=== PATIENT | male | born 1935 | race Caucasian/White ===

== ENCOUNTER → 2017-01-06 | Outpatient (CLI) | payer MEDICARE, BC, OTHER ==
[~2017-01-06] MED LIST: ADVI200T PO; ASPI1TAB PO; E-Z PAQUE 60% w/v SUSP 355ML BOTTLE As Ordered ONE; E-Z-GAS II EFFERVESCENT PACKET (SODIUM BICARB./CITRIC ACID/SIMETHICONE) As Ordered ONE; E-Z-HD 98% w/w 340GM SUSP BTL As Ordered ONE; GLUC15002 PO; MECL-68 PO; META0.52 PO; METO5TAB2 PO; MULTCAP PO; OMEP10CA45 PO; TYLE325T5 PO; VIAG100T PO; ZANT1TAB PO
--- NOTE | 2017-01-06 15:43 | REP ---
ESOPHAGRAM: The procedure was performed under the direct supervision of Dr. Park. The images were reviewed with Dr. Park. 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 There is no change compared to a previous chest x-ray performed on 01/20/2016 other than the right rib fracture is now a healed rib fracture. Liquid barium was administered in the erect position. The oral and pharyngeal stages of deglutition were initially unremarkable, however, subsequently the patient did aspirate without cough response. There are degenerative changes of the cervical spine. 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 There is no evidence of esophagitis. There is a hiatal hernia present. Gastroesophageal reflux is not demonstrated on this examination. IMPRESSION: 1. There is aspiration without cough response. 2. 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 3. There is a hiatal hernia present. 1 minute and 14 seconds of fluoroscopy time was utilized for this procedure. Reviewed by KEVIN Mcpherson 01/06/2017 04:10 PEdited and Signed by Luke Park MD 01/06/2017 05:02 P
== END ==
LOC: M RAD 08:21
PROVIDERS: ATTEND Surgery
DX: R13.10 Dysphagia, unspecified (principal)

== ENCOUNTER 2017-10-18 15:29 | Inpatient (IN) | payer MEDICARE, BC, OTHER ==
[~2017-10-18] VITALS: Ht 170.2 cm; Wt 63.2 kg
[~2017-10-18 15:29] MED LIST changes: -E-Z PAQUE 60% w/v SUSP 355ML BOTTLE As Ordered ONE; -E-Z-GAS II EFFERVESCENT PACKET (SODIUM BICARB./CITRIC ACID/SIMETHICONE) As Ordered ONE; -E-Z-HD 98% w/w 340GM SUSP BTL As Ordered ONE
[2017-10-18] MEDS ORDERED: DULO1CAP2 PO (16:02)
[2017-10-18] MEDS ORDERED: STOO1CAP9 PO (16:02)
[2017-10-18] MEDS ORDERED: LINZ145C PO (16:02)
[2017-10-18] MEDS ORDERED: LOPE2CAP PO (16:02)
[2017-10-18] MEDS ORDERED: ONDANSETRON 4MG/2ML VIAL (J2405) IV ONE (16:45)
--- NOTE | 2017-10-18 16:45 | REP ---
CT of the brain without IV contrast: Comparison is 06/02/2014. There is no epidural or subdural hematoma. There is no other hemorrhage. There is no edema, mass effect or midline shift. The cortical stripe is unremarkable. The ventricles and sulci are dilated as previously compatible with diffuse volume loss. The visualized paranasal sinuses and mastoid air cells are clear. Impression: Diffuse volume loss, unchanged from the prior study. No subdural hematoma or other intracranial hemorrhage. No change from the prior study. The patient's head is tilted in the scanning gantry. Signed by Josué Arambula MD 10/18/2017 04:37 P
--- NOTE | 2017-10-18 16:46 | REP ---
Cervical spine l CT: There are no comparisons. Axial images are acquired helical scanning and a reformatted sagittal coronal projections. There are no comparisons. The skull base, C1-C2 are unremarkable except for osteoarthritis. There is diffuse demineralization. Vertebral body heights are normal. No compression deformities. The facets are normally aligned. There is osteoarthritis throughout the facets. There is degenerative disc disease at C 04/, 03/12 and 04/13. There is grade [address] for vertebral body on C5. This is likely degenerative or from ligamentous laxity. The prevertebral soft tissues are normal. There are no posterior element fractures. Impression: There is no fracture. There is grade 1 anterolisthesis of C4 on C5, likely degenerative secondary ligamentous laxity. However, if there is clinical point tenderness at this level. CT might be considered to evaluate for ligamentous injury. There is osteoarthritis in the posterior facets throughout the cervical spine Signed by Josué Arambula MD 10/18/2017 04:37 P
[2017-10-18] MEDS ORDERED: TETANUS/DIPHTHERIA TOX ADSORB ADULT 0.5ML SYR/VIAL (90714) IM ONE (17:00)
--- NOTE | 2017-10-18 17:03 | REP ---
AP pelvis and right hip: AP pelvis single view: There is a demineralization. There is no pelvic fracture. Surgical fusion of the lumbar spine at L4-5. There are bilateral laminectomies at L4-5. Right hip two views: On the lateral view I suspect there is a nondisplaced fracture of the femoral neck. This is not visible on the AP view of the hip or AP view of the pelvis. CT might be considered for confirmation. Signed by Josué Arambula MD 10/18/2017 04:54 P
[2017-10-18] MEDS: MORPHINE 2 MG/ML 1ML SYRINGE IV PRN ×3 (17:07→22:58)
[2017-10-18 17:10] LABS: BASO # 0.1 10^3/uL (0.0-0.2); BASO % 0.4 % (0.0-1.0); EOS # 0.3 10^3/uL (0.0-0.50); EOS % 2.4 % (0.0-3.0); IMMATURE GRANULOCYTE % 0.7 % (0-0); LYMPH # 1.8 10^3/uL (1.5-4.5); LYMPH % 15.9 % (24.0-44.0); MEAN CORPUSCULAR HEMOGLOBIN 33.6 pg (27.0-33.0); MEAN CORPUSCULAR HGB CONC 33.3 g/dl (32.0-36.5); MEAN CORPUSCULAR VOLUME 100.8 fl (80.0-96.0); MONO # 0.9 10^3/uL (0.0-0.8); MONO % 7.5 % (0.0-5.0); NEUTROPHILS # 8.3 10^3/uL (1.8-7.7); NEUTROPHILS % 73.1 % (36.0-66.0); PLATELET COUNT, AUTOMATED 252 10^3/uL (150-450); RED CELL DISTRIBUTION WIDTH 13.6 % (11.5-14.5); WHITE BLOOD COUNT 11.4 10^3/uL (4.0-10.0)
[2017-10-18 17:20] LABS: INR 1.13
[2017-10-18 17:28] LABS: ANION GAP 8 MEQ/L (8-16); BLOOD UREA NITROGEN 27 MG/DL (7-18); CALCIUM LEVEL 8.3 MG/DL (8.8-10.2); CARBON DIOXIDE LEVEL 27 MEQ/L (21-32); CHLORIDE LEVEL 112 MEQ/L (98-107); CREATININE FOR GFR 0.97 MG/DL (0.70-1.30); GLOMERULAR FILTRATION RATE > 60.0 (>35); GLUCOSE, FASTING 92 MG/DL (83-110); SODIUM LEVEL 147 MEQ/L (136-145)
[2017-10-18] MEDS ORDERED: OMEP40CA2 PO (17:32)
--- NOTE | 2017-10-18 18:53 | REP ---
CT RIGHT HIP WITHOUT CONTRAST: 10/18/2017. Clinical history: Trauma, suspected femoral neck fracture on radiographs. Technique. Thin-section axial soft-tissue and bone window settings with coronal and sagittal bone window reconstructions. Findings: There is a subcapital fracture of the femoral neck at the femoral head junction with some mild apex anterior angulation of the fracture. No subluxation or dislocation of the femoral head from the acetabulum. There is some narrowing of the hip joint space and rim osteophyte and subchondral cystic change in the acetabular roof and anterior column of the acetabulum. Posterior column intact. I see no fracture of the acetabulum and no intertrochanteric fracture. The pubic rami, symphysis pubis and remainder the visualized iliac bone above the acetabulum unremarkable. That portion of the left side of the sacrum seen is unremarkable. Bladder partially filled. No inguinal hernia or adenopathy visible on this study. There is a joint effusion from the fracture. Impression: 1. Confirmation of the plain film finding of a right femoral neck fracture with some apex anterior angulation and slight impaction of the femoral neck fracture at the femoral head as a basicervical fracture. No other fractures. Some degenerative changes at the hip joint as described. Signed by Pepe Cornell MD 10/18/2017 08:06 P
[2017-10-18] MEDS ORDERED: ACETAMINOPHEN TAB 650MG DOSE (2X325MG) PO PRN (20:45)
[2017-10-18] MEDS ORDERED: OMEPRAZOLE 20 MG CAP PO SCH (21:00)
[2017-10-18] MEDS ORDERED: DULoxetine 30 MG CAP (CYMBALTA) PO SCH (21:00)
--- NOTE | 2017-10-18 21:02 | CR ---
DATE OF CONSULTATION: 10/18/2017 REASON FOR CONSULTATION: Right hip fracture. CONSULTING PHYSICIAN: Hospitalist service. CHIEF COMPLAINT: Right hip pain. HISTORY OF PRESENT ILLNESS: Danny Elena is an 82-year-old male home ambulator with a walker who sustained a mechanical fall from standing height today, resulting in immediate right hip pain and difficulty bearing weight in addition to a scalp laceration. The scalp laceration was washed and closed by the emergency room doctor. Patient had continued right hip pain, imaging showing femoral neck fracture. Orthopedics was consulted for management of this fracture. The patient denied any antecedent hip pain. He also denied any antecedent chest pain, calf pain, shortness of breath, dizziness, nausea, or headaches prior to his fall. He localized pain to the right hip. He does have baseline spinal stenosis with numbness in bilateral lower extremities, which has not changed from this fall. PAST MEDICAL HISTORY: Significant for: 1. Hypertension. 2. Gastroesophageal reflux disease (GERD). 3. Arrhythmia. MEDICATIONS: - Advil as needed - baby aspirin once daily - omeprazole 40 mg daily - ranitidine 150 mg twice a day - Cymbalta 30 mg once daily ALLERGIES: No known drug allergies. PAST SURGICAL HISTORY: 1. Appendectomy. 2. Pacemaker placement. 3. L4-5 posterior spinal fusion. FAMILY HISTORY: Noncontributory. SOCIAL HISTORY: Patient lives with his in [place]. He does not smoke or use illicit drugs. REVIEW OF SYSTEMS: A 14-point review of systems was reviewed and unremarkable. PHYSICAL EXAMINATION: VITAL SIGNS: Temperature 96.7, heart rate 90, blood pressure 140/81, respiratory rate 21, oxygen saturation 95% on room air. GENERAL: This is a well-nourished male who appears his stated age. No acute distress. HEENT: He had a 3 cm scalp laceration that was washed and closed with donato. CARDIOVASCULAR: He had 2+ dorsalis pedis (DP) and posterior tibialis (PT) pulse and brisk capillary refill at all digits of the right lower extremity. NEUROLOGIC: Patient had intact but diminished sensation globally about the right lower extremity. Motor function is grossly intact in the femoral, tibial, sural, saphenous, superficial peroneal, and deep peroneal nerve distributions. MUSCULOSKELETAL: Focus physical exam of the right hip demonstrates no open wounds or abrasions. There is no pain with logroll. He is maximally tender about the lateral posterior aspect of the right hip. There is no visible ecchymosis or soft tissue swelling. He has no tenderness about the knee or ankle. RADIOGRAPHS: Plain radiographs of the right hip demonstrate a minimally displaced femoral neck fracture. CT scan of the right hip demonstrates minimally displaced right femoral neck fracture. ASSESSMENT: This is an 82-year-old male home ambulator with a minimally displaced right femoral neck fracture. PLAN: I had a long discussion with the patient and family regarding risks, benefits, indications, and alternatives of operative versus nonoperative management. Given his ambulatory status and his overall level of function, I think the patient would suffice with percutaneous screw fixation despite the mild posterior displacement; however, hemiarthroplasty could also be considered in a case like this. I discussed with the patient's family and obtained informed consent for both percutaneous screw fixation and hemiarthroplasty. Patient was evaluated by the hospitalist service and needs to be evaluated to see if his current pacemaker needs to be interrogated prior to surgery. He will be posted for tomorrow pending clearance. Recommend nothing by mouth after midnight in anticipation of surgical fixation tomorrow. Patient and family expressed understanding and agreed to the plan. All questions were answered. BERNICE
[2017-10-18] MEDS: NORCO, ANEXSIA 5/325MG TABLET (HYDROcodone/ACETAMINOPHEN) PO PRN (21:15)
[2017-10-18] MEDS: FAMOTIDINE 20 MG TAB PO SCH (21:39)
[2017-10-18 23:00] VITALS: BP 169/95
[2017-10-18 23:32] VITALS: BP 148/76
[2017-10-18] MEDS ORDERED: MORPHINE 2 MG/ML 1ML SYRINGE IV ONE (23:45)
--- NOTE | 2017-10-19 00:51 | HPE ---
DATE OF ADMISSION: 10/18/2017 ATTENDING PHYSICIAN: Cheikh Landrum MD. CHIEF COMPLAINT: Fell and broke hip. HISTORY OF PRESENT ILLNESS: This is a pleasant 82-year-old male with a past medical history of status post lumbar disc surgery, hiatal hernia, history of complete heart block, currently with a dual-chamber pacemaker placed by Dr. Barnhart in 2014, who is presenting today after a mechanical fall this afternoon around 2 p.m. When ambulating from the living room to the bedroom, he stubbed his toe on the carpet, fell, hit his head on the doorjamb and hit his hip on the doorjamb on the way down Patient denies having a syncopal episode, felling dizzy or lightheaded prior to the fall. He denies any loss of conscious and remember all events till now. Patient states he usually uses a walker to ambulates since his back surgery. He denies having any hip pain prior to the fall and currently his pain in the emergency room (ER) is managed well with the morphine. Patient states that he did not take any medication after the fall at home. He had stayed grounded until emergency medical services (EMS) came and got him and has not ambulated at all. The fall was not witnessed but his was in the next room who heard the fall. States to normally walk around the house with his walker and some outside, but does not do any extraneous work. He has no other complaints at this visit at this time. PAST MEDICAL HISTORY: 1. Complete heart block history, currently on a dual-chamber pacemaker 2. Chronic back pain status post lumbar disc surgery. 3. Hiatal hernia. 4. Acid reflux. ALLERGIES: No known drug allergies. MEDICATIONS: - Advil 200 mg as needed 2-3 times in the morning - aspirin 81 mg daily at night - stool softener 250 mg twice a day - omeprazole 40 mg once a day - ranitidine 150 mg two times a day - Cymbalta 30 mg once a day at night - loperamide 2 mg capsule as needed for loose stools - Linzess one capsule as needed for loose stools PAST SURGICAL HISTORY: 1. Lumbar disc surgery. 2. Dual-chamber pacemaker in 2014. SOCIAL HISTORY: Previous smoker, quit 5 years ago with a history of one pack per day for 23 years. Currently a rare social drinker. Is , lives with his and dog at home. REVIEW OF SYSTEMS: CONSTITUTIONAL: Denies chills, fever, malaise, night sweats or weight loss. EYES: Denies any pain, vision changes. SKIN: Denies easy bruising or itchy lesions or rashes. PULMONARY: Denies shortness of breath, dyspnea or cough or pleuritic chest pain. CARDIOVASCULAR: Denies chest pain, palpitations, lower extremity edema, lightheadedness. GASTROINTESTINAL: Denies nausea, vomiting. Admits to abdominal discomfort due to history of constipation. Denies current diarrhea or hematochezia. HEMATOLOGICAL: Denies easy bruising or bleeding excessively, petechia or purpura. MUSCULOSKELETAL: Admits to back pain and hip pain and some muscle spasms in his lower extremities. Also admits to decreased sensation bilaterally chronically since back surgery. NEUROLOGICAL: Denies incoordination or confusion. PHYSICAL EXAMINATION: VITAL SIGNS: Temperature 97.3, pulse 95, respiratory rate 20, blood pressure 129/73, mean arterial pressure (MAP) of 91, pulse oximetry of 93% on room air. GENERAL: A pleasant 82-year-old male, who is alert, conversant in no acute distress. HEAD: Laceration appreciated on the right upper parietal lobe with three donato with dry blood appreciated. HEENT: Pupils are equal and reactive to light bilaterally. Extraocular muscles are intact bilaterally. As stated above, head laceration on the right parietal is appreciated with three donato and dry blood around it. No erythema or swelling noted at the site. Hard of hearing, uses hearing aid. NECK: No neck masses or lesions appreciated. No jugular venous distention (JVD). LUNGS: Clear to auscultate bilaterally, but there is a lack of aeration bilaterally due to lack of effort. HEART: Irregular rhythm with a regular rate. Pacemaker can be felt on the upper left chest under pectoral muscle. Regular S1 and S2 sounds. No murmurs or gallops appreciated. ABDOMEN: Soft, nontender. No masses. No bruising appreciated. Positive bowel sounds in all quadrants. EXTREMITIES: No clubbing. No cyanosis or pedal edema appreciated. Strong pedal pulses bilaterally. Tenderness of palpation of the right hip. No erythema, bruising or open wound appreciated. NEUROLOGICAL: Decreased sensation bilaterally in the lower extremities. Decreased muscle strength on the right lower extremity due to pain and lack of effort. Left side good muscle strength appreciated on the lower extremity. LABORATORY VALUES: Hematology: WBC 11.4, hemoglobin 12.5, hematocrit 37.5, platelets 252. Chemistry: Sodium 147, potassium 4.0, chloride 112, carbon dioxide 27, BUN 27, creatinine 0.97, fasting glucose 92, calcium 8.3. Coagulation: PT of 14.6, INR 1.13. IMAGING STUDIES: Done in the ER. Hip/pelvic x-ray showed on lateral view a nondisplaced fracture of the femoral neck. Extremity CT showed a right femoral neck fracture with some apex anterior angulation and slight impaction of the femoral neck fracture at the femoral head at the basicervical fracture. No other fractures are appreciated. Some degenerative changes at the hip joint. Head CT showed diffuse volume loss unchanged from his prior studies. No subdural hematoma or other intracranial hemorrhages. Cervical spine CT showed no fracture. There is grade 1 anterolisthesis of C4 on C5 likely degenerative secondary to ligamentous laxity. There is also osteoarthritis in the posterior facet throughout the cervical spine. EKG in the ER showed an electric atrial paced rhythm. Rhythm is not dependent on the pacemaker. 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 ASSESSMENT AND PLAN: This is a pleasant 82-year-old male with a past medical history of a complete heart block, currently on a dual-chamber pacemaker, lower lumbar surgery, and a hiatal hernia, who is getting admitted today for a femoral neck fracture due to a mechanical fall. 1. Right femoral neck fracture. Based on patient's history of denying any syncope or dizziness prior to the fall and the fact that he tripped on a carpet, this likely is due to a mechanical fall. The patient needs orthopedic surgery and ED consulted them. Dr. Ramírez saw the patient in the emergency room (ER) and he will obtain written consent. The surgery will be tomorrow, per Dr. Ramírez and the patient will be admitted to floor. For pain management Tylenol 650 mg every 4 hours as needed for mild pain, Maramec 325/5 for one tablet by mouth every four as needed for moderate pain and morphine 1 mg every 2 hours as needed for severe pain. 2. History of complete heart block. Currently with a dual-chamber pacemaker. The patient's EKG in the ER showed that his rhythm is not pacemaker dependent. Prior to the fall, he denies having any syncopal episodes or dizziness. Unlikely that the patient needs to have his pacemaker interrogated, but in the morning prior to surgery if the day team would like to call Dr. Barnhart to confirm if the patient needs to have his pacemaker interrogated they may. The patient right now is hemodynamically stable. 3. General anxiety. Patient can continue with Cymbalta 30 mg by mouth at nighttime up to the day of surgery. 4. History of hiatal hernia and gastroesophageal reflux disease (GERD) symptoms. Patient can continue with home dose of omeprazole 40 mg by mouth at night and famotidine 150 mg by mouth twice a day up to the day of surgery. 5. History of aspirin use. Will hold aspirin 81 mg currently. Will consider restarting after surgery but will assess again after surgery. 6. Diet. Currently patient is nothing by mouth after midnight until surgery has been scheduled and completed. 7. Deep venous thrombosis (DVT) prophylaxis. Have ordered heparin 5000 units subcutaneously every 8 hours. 8. Patient will be admitted to medical/surgical with telemetry. 9. Patient will be under the service of Dr. Montejo. My faculty preceptor for this patient encounter was physically present during the encounter and was fully available. All aspects of the patient interview, examination, medical decision making process, and medical care plan development were reviewed and approved by the faculty preceptor. The faculty preceptor is aware and concurs with the plan as stated in the body of this note and will attest to such by his/her co-signature. BERNICE
[2017-10-19] MEDS: MORPHINE 2 MG/ML 1ML SYRINGE IV PRN ×2 (01:30→18:22)
[2017-10-19 06:00] VITALS: BP 131/72
[2017-10-19] MEDS: HEPARIN SOD (PORCINE) 5000 UNITS/ML VIAL SC SCH ×2 (06:00→13:22)
[2017-10-19 06:49] LABS: MEAN CORPUSCULAR HEMOGLOBIN 33.2 pg (27.0-33.0); MEAN CORPUSCULAR HGB CONC 32.6 g/dl (32.0-36.5); MEAN CORPUSCULAR VOLUME 101.9 fl (80.0-96.0); PLATELET COUNT, AUTOMATED 222 10^3/uL (150-450); RED CELL DISTRIBUTION WIDTH 13.5 % (11.5-14.5); WHITE BLOOD COUNT 9.5 10^3/uL (4.0-10.0)
[2017-10-19 07:11] LABS: ALBUMIN 3.1 GM/DL (3.2-5.2); ALBUMIN/GLOBULIN RATIO 0.91 (1.00-1.93); ALKALINE PHOSPHATASE 70 U/L (45-117); ALT/SGPT 38 U/L (12-78); ANION GAP 7 MEQ/L (8-16); AST/SGOT 35 U/L (7-37); BILIRUBIN,TOTAL 0.9 MG/DL (0.2-1.0); BLOOD UREA NITROGEN 26 MG/DL (7-18); CALCIUM LEVEL 8.3 MG/DL (8.8-10.2); CARBON DIOXIDE LEVEL 28 MEQ/L (21-32); CHLORIDE LEVEL 109 MEQ/L (98-107); CREATININE FOR GFR 0.88 MG/DL (0.70-1.30); GLOMERULAR FILTRATION RATE > 60.0 (>35); GLUCOSE, FASTING 115 MG/DL (83-110); POTASSIUM SERUM 3.7 MEQ/L (3.5-5.1); SODIUM LEVEL 144 MEQ/L (136-145); TOTAL PROTEIN 6.5 GM/DL (6.4-8.2)
[2017-10-19] MEDS: NORCO, ANEXSIA 5/325MG TABLET (HYDROcodone/ACETAMINOPHEN) PO PRN ×2 (07:53→15:14)
[2017-10-19] MEDS: FAMOTIDINE 20 MG TAB PO SCH (07:53)
[2017-10-19] MEDS ORDERED: ONDANSETRON 4MG/2ML VIAL (J2405) IV PRN ×2 (11:00→21:30)
[2017-10-19] MEDS ORDERED: BISACODYL 10 MG SUPP PR PRN (11:00)
[2017-10-19] MEDS ORDERED: FLEET ENEMA PR PRN (11:15)
[2017-10-19 14:00] VITALS: BP 120/98
--- NOTE | 2017-10-19 17:15 | IPNPDOC ---
Date Seen The patient was seen on 10/19/17. Progress Note See todays progress note for full details. Patient with mets less than 4, advanced age at moderate risk for operative procedure. Medically optimized no further testing prior to OR. Pacer interrogated by Dr. Bonner found to be functioning adequately without significant events. VS, I&O, 24H, Fishbone Vital Signs/I&O Vital Signs Date Time Temp Pulse Resp B/P (MAP) Pulse Ox O2 Delivery O2 Flow Rate FiO2 10/19/17 15:44 17 10/19/17 14:00 98.8 91 120/98 (105) 93 Room Air I&O- Last 24 Hours up to 6 AM 10/20/17 06:00 Intake Total 0 ml Output Total 300 ml Balance -300 ml Laboratory Data 24H LABS Laboratory Tests 2 10/18/17 17:02: Immature Granulocyte % (Auto) 0.7H, White Blood Count 11.4H, Red Blood Count 3.72L, Hemoglobin 12.5L, Hematocrit 37.5L, Mean Corpuscular Volume 100.8H, Mean Corpuscular Hemoglobin 33.6H, Mean Corpuscular Hemoglobin Concent 33.3, Red Cell Distribution Width 13.6, Platelet Count 252, Neutrophils (%) (Auto) 73.1H, Lymphocytes (%) (Auto) 15.9L, Monocytes (%) (Auto) 7.5H, Eosinophils (%) (Auto) 2.4, Basophils (%) (Auto) 0.4, Neutrophils # (Auto) 8.3H, Lymphocytes # (Auto) 1.8, Monocytes # (Auto) 0.9H, Eosinophils # (Auto) 0.3, Basophils # (Auto) 0.1, Immature Granulocyte # (Auto) 0.1H, Nucleated Red Blood Cells % (auto) 0.0, Prothrombin Time 14.6H, Prothromb Time International Ratio 1.13, Anion Gap 8, Glomerular Filtration Rate > 60.0, Blood Urea Nitrogen 27H, Creatinine 0.97, Sodium Level 147H, Potassium Level 4.0, Chloride Level 112H, Carbon Dioxide Level 27, Calcium Level 8.3L 10/19/17 06:15: Nucleated Red Blood Cells % (auto) 0.0, Anion Gap 7L, Glomerular Filtration Rate > 60.0, Blood Urea Nitrogen 26H, Creatinine 0.88, Sodium Level 144, Potassium Level 3.7, Chloride Level 109H, Carbon Dioxide Level 28, Calcium Level 8.3L, Aspartate Amino Transf (AST/SGOT) 35, Alanine Aminotransferase (ALT/ SGPT) 38, Alkaline Phosphatase 70, Total Bilirubin 0.9, Total Protein 6.5, Albumin 3.1L, Albumin/Globulin Ratio 0.91L CBC/BMP Laboratory Tests 10/18/17 17:02 Red Blood Count 3.72 L, Mean Corpuscular Volume 100.8 H, Mean Corpuscular Hemoglobin 33.6 H, Mean Corpuscular Hemoglobin Concent 33.3, Red Cell Distribution Width 13.6, Neutrophils (%) (Auto) 73.1 H, Lymphocytes (%) (Auto) 15.9 L, Monocytes (%) (Auto) 7.5 H, Eosinophils (%) (Auto) 2.4, Basophils (%) ( Auto) 0.4, Neutrophils # (Auto) 8.3 H, Lymphocytes # (Auto) 1.8, Monocytes # ( Auto) 0.9 H, Eosinophils # (Auto) 0.3, Basophils # (Auto) 0.1, Calcium Level 8.3 L 10/19/17 06:15 Red Blood Count 3.70 L, Mean Corpuscular Volume 101.9 H, Mean Corpuscular Hemoglobin 33.2 H, Mean Corpuscular Hemoglobin Concent 32.6, Red Cell Distribution Width 13.5, Calcium Level 8.3 L, Aspartate Amino Transf (AST/SGOT) 35, Alanine Aminotransferase (ALT/SGPT) 38, Alkaline Phosphatase 70, Total Bilirubin 0.9, Total Protein 6.5, Albumin 3.1 L TAYLER HENRY MD Oct 19, 2017 16:54
[2017-10-19] MEDS ORDERED: MIDAZOLAM INJ 2 MG/2 ML VIAL (J2250) As Ordered ONE (19:17)
[2017-10-19] MEDS ORDERED: PROPOFOL 200 MG/20 ML VIAL As Ordered ONE (19:17)
[2017-10-19] MEDS ORDERED: LIDOCAINE 2% INJ 100 MG/5 ML SDV (FOR ANES.) As Ordered ONE (19:17)
[2017-10-19] MEDS ORDERED: fentaNYL 100 MCG/2 ML INJECTION (J3010) As Ordered ONE (19:17)
[2017-10-19] MEDS ORDERED: ceFAZolin 1GM INJ (J0690 PER 500MG) As Ordered ONE (19:22)
[2017-10-19] MEDS ORDERED: PHENYLephrine HCL 500 MCG/5 ML (100MCG/ML) SYRINGE (J2370) As Ordered ONE (20:08)
[2017-10-19] MEDS ORDERED: LIDOCAINE W/EPINEPHRINE 1% 20ML VIAL As Ordered ONE (20:20)
[2017-10-19] MEDS ORDERED: BUPIVACAINE HCL 0.5% 30 ML VIAL As Ordered ONE (20:20)
[2017-10-19] MEDS ORDERED: PERCOCET 5MG/325MG TAB PO PRN (21:30)
[2017-10-19] MEDS ORDERED: HYDROmorphone HCL 1 MG/ML SYRINGE (J1170) IV PRN (21:30)
[2017-10-19] MEDS ORDERED: fentaNYL 100 MCG/2 ML INJECTION (J3010) IV PRN (21:30)
[2017-10-19] MEDS ORDERED: LR 1,000 ML IV SCH (21:30)
[2017-10-19 22:30] VITALS: BP 175/90
[2017-10-19 23:00] VITALS: BP 165/88
[2017-10-19] MEDS ORDERED: WARFARIN SOD 5 MG TAB PO ONE (23:00)
[2017-10-20] VITALS (7 sets, daily range): BP systolic 119–175; BP diastolic 71–89
--- NOTE | 2017-10-20 02:46 | IPN ---
DATE OF SERVICE: 10/19/2017 OVERNIGHT EVENTS: The patient was admitted. He was seen and evaluated by admitting hospitalist team who did not feel the patient was safe to proceed to the operating room (OR). Did not risk stratify the patient. The patient would need to have pacemaker checked prior to proceeding to the OR. I did speak with Dr. Landrum this morning regarding this case at 7 a.m. I also did speak with Dr. Reyes shortly after 7 a.m. who informed me he would be able to interrogate the pacer this afternoon. I did speak with Tracey Euceda, nurse practitioner for the surgery service, who informed me that the patient would probably be an after hours case this evening. SUBJECTIVE: The patient tells me that he has pain, but otherwise has no specific complaints and is eager to go the operating room. OBJECTIVE: VITAL SIGNS: Stable. Temperature 98.1, pulse 89, respiratory rate 18, blood pressure 131/72, oxygen saturation 98% on room air. GENERAL: He is a frail, elderly, man lying in bed at a 30 degree angle accompanied by his daughter and his . HEENT: He has a laceration of his right frontal scalp. Moist mucous mebranes. Cranial nerves II-XII are grossly intact. No elevation of central venous pressure (CVP). CARDIOVASCULAR EXAMINATION: S1, S2, regular. He has a pacer in place. ABDOMINAL EXAMINATION: Benign. EXTREMITIES: No clubbing, cyanosis or edema. RESPIRATORY EXAMINATION: Clear. LABORATORIES: WBC 9.5 down from 11.4, hemoglobin 12.3, platelet count is 222. Chemistry panel: Sodium 144, potassium 3.7, chloride 109, bicarbonate 28, BUN 26, creatinine 0.8. INR 1.1. IMAGING: The patient did have a CT of his right hip, which revealed a right femoral neck fracture with some apex and anterior angulation and slight impaction of the femoral neck fracture at the femoral head as a basicervical fracture. ASSESSMENT AND PLAN: This is an 82-year-old man status post fall with a right femoral neck fracture. 1. Fall with a right femoral neck fracture. Dr. Landrum is not comfortable having patient proceed to the operating room, given his history of syncope, fall, and complete heart block requiring a pacer 2 years ago, he did wish the patient to have his pacer interrogated prior to proceeding to the operating room (OR). Dr. Reyes has agreed to complete this for us this afternoon. Orthopedic service is aware of this plan. There has been no change in the plan from 7 a.m. Their help is greatly appreciated. I have obtained his past stress test, recent echocardiogram and clinic notes. His METs are less than 4. Given his advanced age and his recent stress test results, it does look like he is at moderate risk. Should the pacemaker interrogation be unremarkable, he would be able to proceed to the operating room without further testing as he is medically optimized. He does not have exertional symptoms; however, his mobility is limited due to history of back surgery and bilateral rotator cuff tears. 2. Anxiety. Continue Cymbalta. 3. Gastroesophageal reflux disease. Continue with omeprazole and Pepcid. 4. Deep venous thrombosis (DVT) prophylaxis. The patient is on heparin. DISPOSITION: To the operating room pending pacer interrogation. Plan of care was discussed with orthopedic surgery service shortly after 7 a.m. this morning.
--- NOTE | 2017-10-20 04:28 | ECGEPIP ---
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
[2017-10-20] MEDS: ACETAMINOPHEN TAB 650MG DOSE (2X325MG) PO PRN ×2 (04:42→07:48)
[2017-10-20 07:10] LABS: MEAN CORPUSCULAR HEMOGLOBIN 33.7 pg (27.0-33.0); MEAN CORPUSCULAR HGB CONC 33.6 g/dl (32.0-36.5); MEAN CORPUSCULAR VOLUME 100.3 fl (80.0-96.0); PLATELET COUNT, AUTOMATED 191 10^3/uL (150-450); RED CELL DISTRIBUTION WIDTH 13.5 % (11.5-14.5); WHITE BLOOD COUNT 11.3 10^3/uL (4.0-10.0)
[2017-10-20 07:24] LABS: INR 1.32
[2017-10-20 07:28] LABS: ALBUMIN 2.7 GM/DL (3.2-5.2); ALBUMIN/GLOBULIN RATIO 0.77 (1.00-1.93); ALKALINE PHOSPHATASE 63 U/L (45-117); ALT/SGPT 27 U/L (12-78); ANION GAP 8 MEQ/L (8-16); AST/SGOT 24 U/L (7-37); BILIRUBIN,TOTAL 0.9 MG/DL (0.2-1.0); BLOOD UREA NITROGEN 30 MG/DL (7-18); CALCIUM LEVEL 7.8 MG/DL (8.8-10.2); CARBON DIOXIDE LEVEL 26 MEQ/L (21-32); CHLORIDE LEVEL 109 MEQ/L (98-107); CREATININE FOR GFR 0.86 MG/DL (0.70-1.30); GLOMERULAR FILTRATION RATE > 60.0 (>35); GLUCOSE, FASTING 163 MG/DL (83-110); POTASSIUM SERUM 3.5 MEQ/L (3.5-5.1); SODIUM LEVEL 143 MEQ/L (136-145); TOTAL PROTEIN 6.2 GM/DL (6.4-8.2)
--- NOTE | 2017-10-20 07:33 | REP ---
Right hip three intraoperative fluoroscopic views: There are three tip in stabilizing a fracture of the femoral neck in satisfactory position alignment. The tips of the pins are beneath the cortex of the femoral head. Fluoroscopic exposure time is 74 seconds. Intraoperative fluoroscopic images are performed with last image hold technology. These images require no additional radiation Signed by Josué Arambula MD 10/20/2017 07:25 A
[2017-10-20] MEDS: FAMOTIDINE 20 MG TAB PO SCH ×2 (07:48→20:35)
[2017-10-20] MEDS ORDERED: MIRALAX *UNIT DOSE* 17GM PACKET PO PRN (08:15)
[2017-10-20] MEDS: MOM 30ML SUSPENSION UDC PO SCH (09:41)
[2017-10-20] MEDS: traMADol 50 MG TAB PO PRN ×2 (09:42→17:49)
--- NOTE | 2017-10-20 10:48 | RO ---
DATE OF PROCEDURE: 10/19/2017 PREOPERATIVE DIAGNOSIS: Right femoral neck fracture. POSTOPERATIVE DIAGNOSIS: Right femoral neck fracture. PROCEDURE PERFORMED: Right hip in situ percutaneous screw fixation. SURGEON: Dr. Anuj Ramírez DIRECTOR SUMMER SESSIONS: none ANESTHESIA PROVIDER: Dr. Carty ANESTHESIA GIVEN: Single shot spinal and local. ANTIBIOTICS: 1 gram Ancef given within 1 hour of incision. IMPLANTS USED: Synthes 7.3 mm cannulated screws short-thread, one 90 mm, one 85 mm and one 80 mm in length. 90 mm screw was used with a washer. ESTIMATED BLOOD LOSS: 20 mL. MATERIALS SENT TO LAB: None. COMPLICATIONS: None. INDICATION FOR PROCEDURE: Danny Elena is an 82-year-old male, home ambulator with a walker, who sustained a mechanical fall from standing height yesterday resulting in a minimally displaced right femoral neck fracture. The patient was admitted to the hospitalist service for medical optimization. He had a pacemaker that required interrogation. After pacemaker was interrogated by process control operator, he was cleared for surgical management. I discussed with the patient and his family the risks, benefits, indications and alternatives of operative verus nonoperative management and elected to proceed with right hip percutaneous screw fixation. I counseled the patient's family that I will be his operating surgeon but his followup care will be conducted by [facility]. He expressed understanding with this arrangement and elected to proceed with right hip percutaneous screw fixation. Informed consent was obtained. INTRAOPERATIVE FINDINGS: Hip was stable after fixation. There was no evidence of intraarticular penetration of implants. DESCRIPTION OF PROCEDURE: The patient was positively identified in the preop holding area. The surgical site was marked. He was then brought to the operating room where he was given a single shot of spinal anesthesia and he was positioned supine on the fracture table with all bony prominences appropriately padded. Sequential compressive device (SCD) was placed on the nonoperative extremity for deep venous thrombosis (DVT) prophylaxis. I obtained scrap preparer fluoroscopic images to identify positioning for the C-arm. The patient was then prepped and draped in the usual sterile fashion. A final time-out was performed. I used C-arm fluoroscopy to guide the location of the incision. I then made a 3 cm incision the lateral aspect of the femur just proximal to the level of the lesser trochanter. I dissected through skin, subcutaneous tissue and the iliotibial (IT) band and sharply dissected directly onto the lateral aspect of the femur. I then introduced the first guidepin for the posterior-inferior screw and placed it along the posterior-inferior calcar using fluoroscopic guidance. I then placed the posterior-superior guidepin, followed by the anterior-superior pin to form an inverted triangle. After confirming adequate depth, I then measured the length of each screw. This was then followed by drilling of the outer cortex with the 5 mm cannulated drill bit. The screws were then introduced sequentially and tightened sequentially noting excellent fixation and no evidence of interval displacement. After all screws were placed, I obtained final fluoroscopic images to confirm no intraarticular penetration of implants. After this was completed, the wound was then thoroughly irrigated with normal saline and closed in layers with #2-0 Vicryl for the subcutaneous layer and donato for the skin. Sterile dressings were applied. Prior to applying dressings, I injected about 8 mL of a mixture of 0.5% Marcaine with epinephrine and 1% lidocaine with epinephrine for local pain control. Sterile dressings were applied. I was present and scrubbed in for all portions of the case. POSTOPERATIVE PLAN: Patient will return to the hospital floor. He will be weightbearing as tolerated to the right lower extremity. He will undergo physical therapy tomorrow for ambulation with a walker and return to the care of the hospitalist service. He will be discharged when criteria met. He will receive Coumadin for DVT prophylaxis. BERNICE
--- NOTE | 2017-10-20 15:28 | IPN ---
DATE: 10/20/2017 SUBJECTIVE: This morning, the patient tells me that he has a little bit of soreness where the surgery was, but otherwise he was able to get up and ambulate several steps and has no other specific complaints at this time. OBJECTIVE: VITAL SIGNS: Temperature 99.5, pulse 88, respiratory rate 18, blood pressure 119/79, oxygen saturation 91% on room air. GENERAL: He is a frail, elderly, man sitting in a recliner, accompanied by his daughter and his . The patient does not appear to be in any acute distress. HEENT: Well-healing laceration on his right frontal area. Cranial nerves II-XII are grossly intact. He has moist mucous membranes. No elevation in his central venous pressure (CVP). CARDIOVASCULAR EXAM: S1, S2, appears regular at this time. RESPIRATORY EXAM: Clear. ABDOMINAL EXAM: Benign. EXTREMITIES: No clubbing, cyanosis, or edema. Dressing is clean, dry, and intact. LABORATORY STUDIES: WBC 11.3, hemoglobin 11.2, platelet count 191. Chemistry panel: Sodium 143, potassium 3.5, chloride 109, bicarbonate 26, BUN 30, creatinine 0.8, INR 1.3. No new imaging. ASSESSMENT AND PLAN: This is an 82-year-old man status post a fall with a right femoral neck fracture. 1. Right femoral neck fracture. The patient has had an operative repair. Orthopedic surgery's help is greatly appreciated. He has tolerated the procedure well and undergoing recovery. The patient is working with physical therapy. Deep venous thrombosis (DVT) prophylaxis per orthopedic surgery. I suspect he will require some rehabilitation and would benefit from an acute rehabilitation screen. 2. Anxiety. Continue with Cymbalta. 3. Gastroesophageal reflux disease. Continue with omeprazole and Pepcid. DISPOSITION: Pending progress with physical therapy (PT).
[2017-10-20] MEDS ORDERED: WARFARIN SOD 5 MG TAB PO ONE (17:00)
[2017-10-20] MEDS: DULoxetine 30 MG CAP (CYMBALTA) PO SCH (20:35)
[2017-10-20] MEDS: OMEPRAZOLE 20 MG CAP PO SCH (20:35)
[2017-10-21 06:00] VITALS: BP 162/68
[2017-10-21 07:16] LABS: MEAN CORPUSCULAR HEMOGLOBIN 33.6 pg (27.0-33.0); MEAN CORPUSCULAR HGB CONC 33.4 g/dl (32.0-36.5); MEAN CORPUSCULAR VOLUME 100.6 fl (80.0-96.0); PLATELET COUNT, AUTOMATED 195 10^3/uL (150-450); RED CELL DISTRIBUTION WIDTH 13.5 % (11.5-14.5); WHITE BLOOD COUNT 10.5 10^3/uL (4.0-10.0)
[2017-10-21 07:29] LABS: INR 2.65
[2017-10-21 07:39] LABS: ALBUMIN 2.6 GM/DL (3.2-5.2); ALBUMIN/GLOBULIN RATIO 0.76 (1.00-1.93); ALKALINE PHOSPHATASE 61 U/L (45-117); ALT/SGPT 22 U/L (12-78); ANION GAP 9 MEQ/L (8-16); AST/SGOT 25 U/L (7-37); BILIRUBIN,TOTAL 0.6 MG/DL (0.2-1.0); BLOOD UREA NITROGEN 27 MG/DL (7-18); CARBON DIOXIDE LEVEL 26 MEQ/L (21-32); CHLORIDE LEVEL 108 MEQ/L (98-107); CREATININE FOR GFR 0.67 MG/DL (0.70-1.30); GLOMERULAR FILTRATION RATE > 60.0 (>35); GLUCOSE, FASTING 102 MG/DL (83-110); POTASSIUM SERUM 3.6 MEQ/L (3.5-5.1); SODIUM LEVEL 143 MEQ/L (136-145)
[2017-10-21] MEDS: FAMOTIDINE 20 MG TAB PO SCH ×2 (09:19→19:50)
[2017-10-21] MEDS: ACETAMINOPHEN TAB 650MG DOSE (2X325MG) PO PRN ×2 (09:19→19:51)
[2017-10-21] MEDS: MOM 30ML SUSPENSION UDC PO SCH (09:19)
[2017-10-21 14:00] VITALS: BP 163/93
[2017-10-21] MEDS: DULoxetine 30 MG CAP (CYMBALTA) PO SCH (19:50)
[2017-10-21] MEDS: OMEPRAZOLE 20 MG CAP PO SCH (19:51)
[2017-10-21 22:00] VITALS: BP 145/75
[2017-10-22 06:00] VITALS: BP 165/78
[2017-10-22 06:01] LABS: MEAN CORPUSCULAR HEMOGLOBIN 33.2 pg (27.0-33.0); MEAN CORPUSCULAR HGB CONC 33.3 g/dl (32.0-36.5); MEAN CORPUSCULAR VOLUME 99.7 fl (80.0-96.0); PLATELET COUNT, AUTOMATED 210 10^3/uL (150-450); RED CELL DISTRIBUTION WIDTH 13.2 % (11.5-14.5); WHITE BLOOD COUNT 9.5 10^3/uL (4.0-10.0)
[2017-10-22 06:12] LABS: INR 3.33
[2017-10-22 06:26] LABS: ALBUMIN 2.5 GM/DL (3.2-5.2); ALBUMIN/GLOBULIN RATIO 0.74 (1.00-1.93); ALKALINE PHOSPHATASE 55 U/L (45-117); ALT/SGPT 22 U/L (12-78); ANION GAP 4 MEQ/L (8-16); AST/SGOT 31 U/L (7-37); BILIRUBIN,TOTAL 0.6 MG/DL (0.2-1.0); BLOOD UREA NITROGEN 32 MG/DL (7-18); CALCIUM LEVEL 8.2 MG/DL (8.8-10.2); CARBON DIOXIDE LEVEL 31 MEQ/L (21-32); CHLORIDE LEVEL 107 MEQ/L (98-107); CREATININE FOR GFR 0.71 MG/DL (0.70-1.30); GLOMERULAR FILTRATION RATE > 60.0 (>35); GLUCOSE, FASTING 110 MG/DL (83-110); POTASSIUM SERUM 3.6 MEQ/L (3.5-5.1); SODIUM LEVEL 142 MEQ/L (136-145); TOTAL PROTEIN 5.9 GM/DL (6.4-8.2)
[2017-10-22] MEDS: FAMOTIDINE 20 MG TAB PO SCH ×3 (09:00→19:55)
[2017-10-22] MEDS: MOM 30ML SUSPENSION UDC PO SCH ×2 (09:00→09:22)
[2017-10-22] MEDS: ACETAMINOPHEN TAB 650MG DOSE (2X325MG) PO PRN ×3 (09:22→19:53)
--- NOTE | 2017-10-22 10:31 | IPN ---
DATE: 10/21/2017 SUBJECTIVE: The patient tells me that he has no real pain at this time and he is feeling quite well. No specific complaints. OBJECTIVE: VITAL SIGNS: Temperature 99.2, pulse 77, respiratory rate 16, blood pressure 162/68, oxygen saturation 93% on room air. GENERAL: He is a frail, elderly, man sitting up in bed. He does not appear to be in any acute distress. HEENT: Cranial nerves II-XII are grossly intact. He has a laceration with donato in place. He has moist mucous membranes. No elevation in his central venous pressure (CVP). CARDIOVASCULAR EXAM: S1, S2. RESPIRATORY EXAM: Clear. ABDOMINAL EXAM: Benign. EXTREMITIES: No clubbing, cyanosis, or edema. Dressing is clean, dry, and intact. LABORATORY STUDIES: WBC 10.5, hemoglobin 11.0, platelet count 195. Chemistry panel: Sodium 143, potassium 3.6, chloride 108, bicarbonate 26, BUN 27, creatinine 0.6. INR was 2.6 yesterday. No new imaging. ASSESSMENT AND PLAN: This is an 82-year-old man status post a fall with a right femoral neck fracture. 1. Right femoral neck fracture. The patient is status post operative repair. Orthopedic surgery's help is greatly appreciated. Activity status, deep vein thrombosis (DVT) prophylaxis, pain management all as per orthopedic surgery. The patient appears to be progressing quite well. He will continue to work with physical therapy (PT). 2. Anxiety. Continue with Cymbalta. 3. Gastroesophageal reflux disease. Continue with omeprazole and Pepcid. DISPOSITION: Pending physical therapy (PT). As of today, the patient is ready for discharge to rehabilitation.
--- NOTE | 2017-10-22 10:35 | IPN ---
DATE: 10/22/2017 SUBJECTIVE: The patient tells me that he is feeling well. He has some pain in his back from lying in bed, but otherwise he has no specific complaints. He tells me that he would like to go home as soon as he is able. OBJECTIVE: VITAL SIGNS: Temperature 99.6, maximum temperature (t-max) 99.6, heart rate 86, respiratory rate 16, blood pressure 155/78, oxygen saturation 95% on room air. GENERAL: He is a frail, elderly, man sleeping peacefully as I entered the room. Arousable to verbal stimuli. He is hard of hearing. HEENT: He has a well healed laceration on his right frontal scalp with donato in place. He has moist mucous membranes. No elevation in his central venous pressure (CVP). He follows commands. He is awake, alert and oriented times three. CARDIOVASCULAR EXAM: S1, S2. Regular. RESPIRATORY EXAM: Clear. ABDOMINAL EXAM: Benign. EXTREMITIES: No clubbing, cyanosis, or edema. LABORATORY STUDIES: WBC 9.5, hemoglobin 11, platelet count 210. Chemistry panel: Sodium 142, potassium 3.6, chloride 107, bicarbonate 31, BUN 32, creatinine 0.7. INR is 3.3 today. No new imaging. ASSESSMENT AND PLAN: This is an 82-year-old man status post a fall with a right femoral neck fracture. 1. Right femoral neck fracture. Physical therapy (PT), pain control and deep vein thrombosis (DVT) prophylaxis as per orthopedic surgery. He does appear to be doing quite well. PT worked with him yesterday and feels as though he is safe for discharge to rehabilitation only, which I agree is appropriate. 2. Anxiety. Continue with Cymbalta. 3. Gastroesophageal reflux disease. Continue with omeprazole and Pepcid. DISPOSITION: Pending progression with physical therapy (PT) and placement.
[2017-10-22] MEDS: traMADol 50 MG TAB PO PRN (13:54)
[2017-10-22 14:00] VITALS: BP 142/74
[2017-10-22] MEDS: DULoxetine 30 MG CAP (CYMBALTA) PO SCH (19:54)
[2017-10-22] MEDS: OMEPRAZOLE 20 MG CAP PO SCH (19:55)
--- NOTE | 2017-10-22 21:01 | ECGEPIP ---
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 Poor R-wave progression PATTERN CONSISTENT WITH PULMONARY DISEASE LEFT ANTERIOR FASCICULAR BLOCK Electronically Signed On 10-22-2017 21:01:02 EST by Garret Reyes
[2017-10-22 22:00] VITALS: BP 142/80
[2017-10-23 06:00] VITALS: BP 151/79
[2017-10-23 06:45] LABS: MEAN CORPUSCULAR VOLUME 99.7 fl (80.0-96.0); PLATELET COUNT, AUTOMATED 219 10^3/uL (150-450); RED CELL DISTRIBUTION WIDTH 13.3 % (11.5-14.5); WHITE BLOOD COUNT 8.5 10^3/uL (4.0-10.0)
[2017-10-23 06:59] LABS: INR 2.54
[2017-10-23 07:06] LABS: ALBUMIN 2.6 GM/DL (3.2-5.2); ALBUMIN/GLOBULIN RATIO 0.72 (1.00-1.93); ALKALINE PHOSPHATASE 56 U/L (45-117); ALT/SGPT 21 U/L (12-78); ANION GAP 7 MEQ/L (8-16); AST/SGOT 25 U/L (7-37); BILIRUBIN,TOTAL 0.6 MG/DL (0.2-1.0); BLOOD UREA NITROGEN 24 MG/DL (7-18); CALCIUM LEVEL 7.8 MG/DL (8.8-10.2); CARBON DIOXIDE LEVEL 28 MEQ/L (21-32); CHLORIDE LEVEL 107 MEQ/L (98-107); CREATININE FOR GFR 0.72 MG/DL (0.70-1.30); GLOMERULAR FILTRATION RATE > 60.0 (>35); GLUCOSE, FASTING 100 MG/DL (83-110); POTASSIUM SERUM 3.7 MEQ/L (3.5-5.1); SODIUM LEVEL 142 MEQ/L (136-145); TOTAL PROTEIN 6.2 GM/DL (6.4-8.2)
[2017-10-23] MEDS: MOM 30ML SUSPENSION UDC PO SCH (09:00)
[2017-10-23] MEDS: ACETAMINOPHEN TAB 650MG DOSE (2X325MG) PO PRN (13:01)
[2017-10-23] MEDS: FAMOTIDINE 20 MG TAB PO SCH ×2 (13:01→21:06)
[2017-10-23 14:00] VITALS: BP 142/83
--- NOTE | 2017-10-23 14:56 | IPN ---
DATE: 10/23/2017 SUBJECTIVE: The patient tells me he is feeling well other than some back pain. He is awake, alert and oriented. He has no specific complaints at this time. OBJECTIVE: VITAL SIGNS: Temperature is 98.6, pulse 84, respiratory rate 20, blood pressure 151/79. Oxygen saturation 93% on room air. GENERAL: He is a frail, elderly, male lying in bed in no distress. Pupils equally round and reactive to light. He has moist mucous membranes. No elevation of central venous pressure (CVP). CARDIOVASCULAR EXAM: S1, S2. RESPIRATORY EXAM: Clear. ABDOMINAL EXAM: Benign. He has a pacer in place. EXTREMITIES: No clubbing, cyanosis or edema. His dressing is clean, dry, and intact. LABORATORY STUDIES: WBC 8.5, hemoglobin 11.5, platelet count 219. Chemistry panel: Sodium 142, potassium 3.7, chloride 107, bicarbonate 28, BUN 24, creatinine 0.7, INR today is 2.5. No new imaging. ASSESSMENT AND PLAN: This is an 82-year-old man, status post fall with a right femoral neck fracture. PROBLEMS: 1. Right femoral neck fracture. Physical therapy (PT), pain control, deep vein thrombosis (DVT) prophylaxis per orthopedic surgery. Their help has been greatly appreciated. Appears to be doing quite well. He continues to work with physical therapy, and they feel as though he is only acceptable for discharge to a rehabilitation facility. 2. Anxiety. Continue with Cymbalta. 3. Gastroesophageal reflux disease. Continue with omeprazole and Pepcid. DISPOSITION: Pending placement and progress with physical therapy.
[2017-10-23] MEDS: traMADol 50 MG TAB PO PRN (16:00)
[2017-10-23] MEDS: DULoxetine 30 MG CAP (CYMBALTA) PO SCH (21:06)
[2017-10-23] MEDS: OMEPRAZOLE 20 MG CAP PO SCH (21:06)
[2017-10-23 22:00] VITALS: BP 127/67
[2017-10-24 06:00] VITALS: BP 163/89
[2017-10-24 07:04] LABS: MEAN CORPUSCULAR HEMOGLOBIN 33.8 pg (27.0-33.0); MEAN CORPUSCULAR HGB CONC 33.9 g/dl (32.0-36.5); MEAN CORPUSCULAR VOLUME 99.7 fl (80.0-96.0); PLATELET COUNT, AUTOMATED 249 10^3/uL (150-450); RED CELL DISTRIBUTION WIDTH 13.2 % (11.5-14.5); WHITE BLOOD COUNT 8.8 10^3/uL (4.0-10.0)
[2017-10-24 07:21] LABS: INR 2.38
[2017-10-24 07:35] LABS: ALBUMIN 2.6 GM/DL (3.2-5.2); ALBUMIN/GLOBULIN RATIO 0.76 (1.00-1.93); ALKALINE PHOSPHATASE 50 U/L (45-117); ALT/SGPT 17 U/L (12-78); ANION GAP 9 MEQ/L (8-16); AST/SGOT 20 U/L (7-37); BILIRUBIN,TOTAL 0.7 MG/DL (0.2-1.0); BLOOD UREA NITROGEN 26 MG/DL (7-18); CALCIUM LEVEL 7.9 MG/DL (8.8-10.2); CARBON DIOXIDE LEVEL 26 MEQ/L (21-32); CHLORIDE LEVEL 108 MEQ/L (98-107); CREATININE FOR GFR 0.68 MG/DL (0.70-1.30); GLOMERULAR FILTRATION RATE > 60.0 (>35); GLUCOSE, FASTING 105 MG/DL (83-110); POTASSIUM SERUM 3.7 MEQ/L (3.5-5.1); SODIUM LEVEL 143 MEQ/L (136-145)
[2017-10-24] MEDS: MOM 30ML SUSPENSION UDC PO SCH (08:52)
[2017-10-24] MEDS ORDERED: TRAM50TA2 PO (08:52)
[2017-10-24] MEDS: ACETAMINOPHEN TAB 650MG DOSE (2X325MG) PO PRN (08:53)
[2017-10-24] MEDS: FAMOTIDINE 20 MG TAB PO SCH (08:53)
--- NOTE | 2017-10-24 13:52 | DSES ---
DATE OF ADMISSION: 10/18/2017 DATE OF DISCHARGE: 10/24/2017 DISCHARGE DIAGNOSIS: 1. Right femoral neck fracture. SECONDARY DIAGNOSES: 1. Anxiety. 2. Gastroesophageal reflux disease (GERD). 3. Sick sinus syndrome status post pacer. 4. Fall. HOSPITAL COURSE: The patient is an 82-year-old man who presented on 10/18 after having a fall. He was found to have a displaced right femoral neck fracture. He was seen in consultation by orthopedic surgery. His pacer was interrogated. He was risk stratified. He underwent operative intervention on 10/19/2017 and he tolerated the procedure well. Postoperatively he worked with physical therapy and had good progress. At this time, he is medically stable for discharge to the acute rehab unit. SUBJECTIVE: The patient tells me that he is feeling well. He has no complaints and would like to go to rehab to continue working. OBJECTIVE: VITAL SIGNS: Temperature 98, pulse 87, respiratory rate 20, blood pressure 163/89. Oxygen saturation 96% on room air. GENERAL: He is a frail elderly man laying flat in bed in no distress. HEENT: He has a well healing laceration on his right forehead. Moist mucous membranes. No elevation of central venous pressure. CARDIOVASCULAR EXAM: S1 and S2, appears regularly at this time. He has a pacer in place. RESPIRATORY EXAM: Clear. ABDOMINAL EXAM: Benign. EXTREMITIES: No clubbing, cyanosis, or edema. Dressing is clean, dry and intact. LABORATORY STUDIES: WBC 8.8, hemoglobin 11.6, platelet count 249. Chemistry panel: Sodium 143, potassium 3.7, chloride 108, bicarb 27, BUN 26, creatinine 0.6, INR is 2.38. IMAGING: He did have a hip and pelvic x-ray on the 10/18 that revealed a nondisplaced fracture of the femoral neck. He did have at the same time a CT scan of the head which revealed diffuse volume loss, unchanged from prior studies. No hematomas or hemorrhage. 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 He also had a CT of the extremity which confirmed right femoral neck fracture with some apex, anterior angulation and slight impaction of the femoral neck fracture at the femoral head as base of cervical fracture. Postoperatively, he had right hip fluoroscopic views intraoperatively that showed satisfactory position and alignment. ASSESSMENT/PLAN: This is an 82-year-old man who is status post fall with a right femoral neck fracture. PROBLEMS: 1. Right femoral neck fracture. Physical therapy, pain control, activity level and deep vein thrombosis (DVT) prophylaxis all as per orthopedic surgery, whose help has been greatly appreciated. The patient is doing well. Physical therapy feels he is safe for discharge to rehab. He has been accepted to the acute rehab unit where he is being discharged today. 2. Anxiety. Continue with Cymbalta. 3. Gastroesophageal reflux disease (GERD). Continue with omeprazole and Pepcid. 4. Sick sinus syndrome. The patient is status post pacer. He does not require any rate controlling agents. DISPOSITION: The patient is being discharged to the acute rehab unit. Activity is weightbearing as tolerated. Walk with a walker. He is to see Dr. Lino in two weeks. Followup with primary care physician in seven days. Diet is as prior to admission. His wound care is Optifoam. He is to shower. MEDICATIONS AT TIME OF DISCHARGE: - tramadol 50 mg 1-2 tablets every 4 hours as needed for pain - duloxetine 30 mg every evening - Linzess 145 mcg every evening - loperamide 2 mg as needed for diarrhea - omeprazole 40 mg every evening - ranitidine 150 mg twice a day - stool softener 240 mg twice a day Greater than 30 minutes spent organizing disposition. edited: 10/25/2017 1230 tkf MTDD
== END 2017-10-24 14:30 | DRG 482 ==
LOC: M ED 15:29 → M ED INP 20:14 → M MS5PR 22:41
PROVIDERS: ADMIT Hospitalist; ATTEND Internal Medicine
PROC: 0QS606Z Reposition Right Upper Femur with Intramedullary Internal Fixation Device, Open Approach (ICD-10-PCS; principal; 2017-10-19 15:00)
DX: S72.001A Fracture of unspecified part of neck of right femur, initial encounter for closed fracture (principal); K21.9 Gastro-esophageal reflux disease without esophagitis; F41.1 Generalized anxiety disorder; S01.01XA Laceration without foreign body of scalp, initial encounter; K44.9 Diaphragmatic hernia without obstruction or gangrene; Z95.810 Presence of automatic (implantable) cardiac defibrillator; W01.198A Fall on same level from slipping, tripping and stumbling with subsequent striking against other object, initial encounter; Y92.018 Other place in single-family (private) house as the place of occurrence of the external cause; Y93.01 Activity, walking, marching and hiking; Y99.9 Unspecified external cause status; Z79.82 Long term (current) use of aspirin; Z79.899 Other long term (current) drug therapy; Z87.891 Personal history of nicotine dependence; Z98.1 Arthrodesis status

== ENCOUNTER 2017-10-24 14:43 | Inpatient (IN) | payer MEDICARE, BC, OTHER ==
[2017-10-24] MEDS ORDERED: MIRALAX *UNIT DOSE* 17GM PACKET PO (16:45)
[2017-10-24] MEDS ORDERED: MOM 30ML SUSPENSION UDC PO (16:45)
[2017-10-24] MEDS: DULoxetine 30 MG CAP (CYMBALTA) PO (22:05)
[2017-10-24] MEDS: FAMOTIDINE 20 MG TAB PO (22:05)
[2017-10-24] MEDS: OMEPRAZOLE 20 MG CAP PO (22:05)
[2017-10-24] MEDS: ACETAMINOPHEN TAB 650MG DOSE (2X325MG) PO (22:05)
[2017-10-25 07:11] LABS: BASO % 0.4 % (0.0-1.0); EOS # 0.7 10^3/uL (0.0-0.50); EOS % 7.3 % (0.0-3.0); IMMATURE GRANULOCYTE # 0.1 10^3/uL (0-0); IMMATURE GRANULOCYTE % 0.8 % (0-0); LYMPH # 1.7 10^3/uL (1.5-4.5); LYMPH % 16.6 % (24.0-44.0); MEAN CORPUSCULAR HEMOGLOBIN 33.1 pg (27.0-33.0); MEAN CORPUSCULAR HGB CONC 33.3 g/dl (32.0-36.5); MEAN CORPUSCULAR VOLUME 99.4 fl (80.0-96.0); MONO # 0.8 10^3/uL (0.0-0.8); MONO % 8.1 % (0.0-5.0); NEUTROPHILS # 6.8 10^3/uL (1.8-7.7); NEUTROPHILS % 66.8 % (36.0-66.0); PLATELET COUNT, AUTOMATED 266 10^3/uL (150-450); RED CELL DISTRIBUTION WIDTH 13.2 % (11.5-14.5); WHITE BLOOD COUNT 10.1 10^3/uL (4.0-10.0)
[2017-10-25 07:36] LABS: ALBUMIN 2.6 GM/DL (3.2-5.2); ALBUMIN/GLOBULIN RATIO 0.79 (1.00-1.93); ALKALINE PHOSPHATASE 50 U/L (45-117); ALT/SGPT 20 U/L (12-78); ANION GAP 8 MEQ/L (8-16); AST/SGOT 23 U/L (7-37); BILIRUBIN,TOTAL 0.7 MG/DL (0.2-1.0); BLOOD UREA NITROGEN 31 MG/DL (7-18); CALCIUM LEVEL 8.1 MG/DL (8.8-10.2); CARBON DIOXIDE LEVEL 27 MEQ/L (21-32); CHLORIDE LEVEL 108 MEQ/L (98-107); CREATININE FOR GFR 0.73 MG/DL (0.70-1.30); GLOMERULAR FILTRATION RATE > 60.0 (>35); GLUCOSE, FASTING 110 MG/DL (83-110); POTASSIUM SERUM 3.8 MEQ/L (3.5-5.1); SODIUM LEVEL 143 MEQ/L (136-145); TOTAL PROTEIN 5.9 GM/DL (6.4-8.2)
[2017-10-25] MEDS: ACYCLOVIR 5% OINT 15GM TOP ×4 (09:00→21:41)
[2017-10-25] MEDS: FAMOTIDINE 20 MG TAB PO ×2 (09:27→20:04)
[2017-10-25] MEDS: ACETAMINOPHEN TAB 650MG DOSE (2X325MG) PO ×2 (09:28→20:05)
[2017-10-25] MEDS: OMEPRAZOLE 20 MG CAP PO (20:04)
[2017-10-25] MEDS: DULoxetine 30 MG CAP (CYMBALTA) PO (20:04)
[2017-10-25] MEDS: traMADol 50 MG TAB PO (21:42)
[2017-10-26] MEDS: ACYCLOVIR 5% OINT 15GM TOP ×5 (05:48→20:52)
[2017-10-26] MEDS: ACETAMINOPHEN TAB 650MG DOSE (2X325MG) PO (05:48)
[2017-10-26 07:26] LABS: INR 1.93
[2017-10-26] MEDS: FAMOTIDINE 20 MG TAB PO ×2 (08:18→20:51)
[2017-10-26] MEDS: traMADol 50 MG TAB PO ×2 (08:19→15:17)
[2017-10-26] MEDS: WARFARIN 1.25 MG PER 1/2 TABLET PO (16:51)
[2017-10-26] MEDS: DULoxetine 30 MG CAP (CYMBALTA) PO (20:51)
[2017-10-26] MEDS: OMEPRAZOLE 20 MG CAP PO (20:51)
[2017-10-26] MEDS: MIRTAZAPINE 7.5MG PER 1/2 TABLET PO (20:51)
[2017-10-27] MEDS: ACYCLOVIR 5% OINT 15GM TOP ×5 (06:07→21:08)
[2017-10-27] MEDS: ACETAMINOPHEN TAB 650MG DOSE (2X325MG) PO ×2 (06:15→23:10)
[2017-10-27 07:47] LABS: INR 1.61
[2017-10-27] MEDS: FAMOTIDINE 20 MG TAB PO ×2 (08:38→21:07)
[2017-10-27] MEDS: traMADol 50 MG TAB PO (08:39)
[2017-10-27] MEDS: WARFARIN SOD 2.5 MG TAB PO (17:03)
[2017-10-27] MEDS: OMEPRAZOLE 20 MG CAP PO (21:07)
[2017-10-27] MEDS: DULoxetine 30 MG CAP (CYMBALTA) PO (21:07)
[2017-10-27] MEDS: MIRTAZAPINE 7.5MG PER 1/2 TABLET PO (21:07)
[2017-10-28] MEDS: ACYCLOVIR 5% OINT 15GM TOP (06:07)
[2017-10-28 08:03] LABS: INR 2.32
[2017-10-28] MEDS: FAMOTIDINE 20 MG TAB PO ×2 (08:14→20:04)
[2017-10-28] MEDS: ACETAMINOPHEN TAB 650MG DOSE (2X325MG) PO ×2 (11:31→23:44)
[2017-10-28] MEDS: DULoxetine 30 MG CAP (CYMBALTA) PO (20:04)
[2017-10-28] MEDS: OMEPRAZOLE 20 MG CAP PO (20:04)
[2017-10-28] MEDS: MIRTAZAPINE 7.5MG PER 1/2 TABLET PO (20:04)
[2017-10-28] MEDS: traMADol 50 MG TAB PO (20:05)
[2017-10-29 06:57] LABS: INR 2.64
[2017-10-29] MEDS: FAMOTIDINE 20 MG TAB PO ×2 (08:05→20:07)
[2017-10-29] MEDS: ACETAMINOPHEN TAB 650MG DOSE (2X325MG) PO ×2 (08:06→18:13)
[2017-10-29] MEDS: MIRTAZAPINE 7.5MG PER 1/2 TABLET PO (20:06)
[2017-10-29] MEDS: traMADol 50 MG TAB PO (20:07)
[2017-10-29] MEDS: OMEPRAZOLE 20 MG CAP PO (20:07)
[2017-10-29] MEDS: DULoxetine 30 MG CAP (CYMBALTA) PO (20:07)
[2017-10-30] MEDS: ACETAMINOPHEN TAB 650MG DOSE (2X325MG) PO (00:35)
[2017-10-30 06:45] LABS: INR 2.24
[2017-10-30] MEDS: FAMOTIDINE 20 MG TAB PO ×2 (07:58→20:45)
[2017-10-30] MEDS: traMADol 50 MG TAB PO ×2 (07:58→20:46)
[2017-10-30] MEDS: OMEPRAZOLE 20 MG CAP PO (20:45)
[2017-10-30] MEDS: MIRTAZAPINE 7.5MG PER 1/2 TABLET PO (20:45)
[2017-10-30] MEDS: DULoxetine 30 MG CAP (CYMBALTA) PO (20:45)
[2017-10-31 07:06] LABS: INR 1.81
[2017-10-31] MEDS: FAMOTIDINE 20 MG TAB PO ×2 (08:50→21:43)
[2017-10-31] MEDS: WARFARIN SOD 1 MG TAB PO (17:02)
[2017-10-31] MEDS: ACETAMINOPHEN TAB 650MG DOSE (2X325MG) PO (18:49)
[2017-10-31] MEDS: OMEPRAZOLE 20 MG CAP PO (21:42)
[2017-10-31] MEDS: MIRTAZAPINE 7.5MG PER 1/2 TABLET PO (21:43)
[2017-10-31] MEDS: traMADol 50 MG TAB PO (21:43)
[2017-10-31] MEDS: DULoxetine 30 MG CAP (CYMBALTA) PO (21:43)
[2017-11-01 06:39] LABS: MEAN CORPUSCULAR HEMOGLOBIN 32.6 pg (27.0-33.0); MEAN CORPUSCULAR HGB CONC 32.5 g/dl (32.0-36.5); MEAN CORPUSCULAR VOLUME 100.6 fl (80.0-96.0); PLATELET COUNT, AUTOMATED 380 10^3/uL (150-450); RED CELL DISTRIBUTION WIDTH 13.1 % (11.5-14.5); WHITE BLOOD COUNT 10.8 10^3/uL (4.0-10.0)
[2017-11-01 06:51] LABS: INR 1.73
[2017-11-01 06:56] LABS: ANION GAP 5 MEQ/L (8-16); BLOOD UREA NITROGEN 31 MG/DL (7-18); CALCIUM LEVEL 8.2 MG/DL (8.8-10.2); CARBON DIOXIDE LEVEL 30 MEQ/L (21-32); CHLORIDE LEVEL 109 MEQ/L (98-107); CREATININE FOR GFR 0.84 MG/DL (0.70-1.30); GLOMERULAR FILTRATION RATE > 60.0 (>35); GLUCOSE, FASTING 97 MG/DL (83-110); MAGNESIUM LEVEL 2.3 MG/DL (1.8-2.4); POTASSIUM SERUM 4.1 MEQ/L (3.5-5.1); SODIUM LEVEL 144 MEQ/L (136-145)
[2017-11-01] MEDS: FAMOTIDINE 20 MG TAB PO ×2 (08:21→20:43)
[2017-11-01] MEDS: traMADol 50 MG TAB PO ×2 (08:21→20:43)
[2017-11-01] MEDS: WARFARIN SOD 2.5 MG TAB PO (17:40)
[2017-11-01] MEDS: DULoxetine 30 MG CAP (CYMBALTA) PO (20:43)
[2017-11-01] MEDS: OMEPRAZOLE 20 MG CAP PO (20:43)
== END 2017-11-01 22:00 | disposition short-term general hospital (02) | DRG 561 ==
LOC: M PCU 11-01 20:40 → M PM&R 14:43
DX: S72.001D Fracture of unspecified part of neck of right femur, subsequent encounter for closed fracture with routine healing (principal); S01.81XD Laceration without foreign body of other part of head, subsequent encounter; I25.10 Atherosclerotic heart disease of native coronary artery without angina pectoris; M54.9 Dorsalgia, unspecified; G89.4 Chronic pain syndrome; F41.9 Anxiety disorder, unspecified; F03.90 Unspecified dementia, unspecified severity, without behavioral disturbance, psychotic disturbance, mood disturbance, and anxiety; K21.9 Gastro-esophageal reflux disease without esophagitis; D64.9 Anemia, unspecified; M19.011 Primary osteoarthritis, right shoulder; H91.93 Unspecified hearing loss, bilateral; K44.9 Diaphragmatic hernia without obstruction or gangrene; W01.198D Fall on same level from slipping, tripping and stumbling with subsequent striking against other object, subsequent encounter; Y92.008 Other place in unspecified non-institutional (private) residence as the place of occurrence of the external cause; Y93.01 Activity, walking, marching and hiking; Z95.0 Presence of cardiac pacemaker; Y99.9 Unspecified external cause status; Z79.899 Other long term (current) drug therapy; Z87.891 Personal history of nicotine dependence; Z97.4 Presence of external hearing-aid; Z91.030 Bee allergy status

== ENCOUNTER 2017-11-01 21:43 | Inpatient (IN) | payer MEDICARE, BC, OTHER ==
[~2017-11-01 21:43] MED LIST changes: -ADVI200T PO; -ASPI1TAB PO; -GLUC15002 PO; -MECL-68 PO; -META0.52 PO; -METO5TAB2 PO; +MIRTAZAPINE 7.5MG PER 1/2 TABLET PO; -MULTCAP PO; -OMEP10CA45 PO; +ONDANSETRON 4MG/2ML VIAL (J2405) IV; -TYLE325T5 PO; -VIAG100T PO; -ZANT1TAB PO; +traMADol 50 MG TAB PO
[2017-11-01] MEDS: SODIUM CHLORIDE 0.9% 1000 ML IV (22:16)
[2017-11-01] MEDS: NS 1,000 ML IV (22:50)
[2017-11-01 23:07] LABS: CK-MB VALUE MASS 2.3 NG/ML (0.0-3.6); CPK CREATINE PHOSPHOKINASE 131 U/L (39-308); MB/CK RELATIVE INDEX 1.75 (< OR =4); TROPONIN I < 0.02 NG/ML (< 0.10)
[2017-11-02 06:09] LABS: CK-MB VALUE MASS 1.5 NG/ML (0.0-3.6); CPK CREATINE PHOSPHOKINASE 103 U/L (39-308); MB/CK RELATIVE INDEX 1.45 (< OR =4); TROPONIN I < 0.02 NG/ML (< 0.10)
[2017-11-02] MEDS: NS 1,000 ML IV (07:18)
[2017-11-02 08:24] LABS: HEMATOCRIT 33.7 % (42.0-52.0); MEAN CORPUSCULAR HEMOGLOBIN 32.6 pg (27.0-33.0); MEAN CORPUSCULAR HGB CONC 32.6 g/dl (32.0-36.5); PLATELET COUNT, AUTOMATED 386 10^3/uL (150-450); RED BLOOD COUNT 3.37 10^6/uL (4.30-6.10); WHITE BLOOD COUNT 11.5 10^3/uL (4.0-10.0)
[2017-11-02 08:35] LABS: INR 1.96
[2017-11-02 08:56] LABS: ANION GAP 6 MEQ/L (8-16); BLOOD UREA NITROGEN 29 MG/DL (7-18); CALCIUM LEVEL 7.9 MG/DL (8.8-10.2); CARBON DIOXIDE LEVEL 29 MEQ/L (21-32); CHLORIDE LEVEL 110 MEQ/L (98-107); GLOMERULAR FILTRATION RATE > 60.0 (>35); GLUCOSE, FASTING 116 MG/DL (83-110); MAGNESIUM LEVEL 2.2 MG/DL (1.8-2.4); POTASSIUM SERUM 4.3 MEQ/L (3.5-5.1); SODIUM LEVEL 145 MEQ/L (136-145)
[2017-11-02] MEDS: MIRALAX *UNIT DOSE* 17GM PACKET PO (09:49)
[2017-11-02] MEDS: SENOKOT S TAB PO ×2 (09:49→22:03)
[2017-11-02] MEDS: FAMOTIDINE 20 MG TAB PO ×2 (09:50→22:03)
[2017-11-02] MEDS: WARFARIN SOD 2.5 MG TAB PO (17:14)
[2017-11-02] MEDS ORDERED: DULoxetine 30 MG CAP (CYMBALTA) PO (21:00)
[2017-11-02] MEDS: PANTOPRAZOLE 40MG TAB (PROTONIX) PO (22:03)
[2017-11-03] MEDS: ACETAMINOPHEN TAB 650MG DOSE (2X325MG) PO ×3 (01:48→20:49)
[2017-11-03 06:26] LABS: HEMATOCRIT 30.4 % (42.0-52.0); MEAN CORPUSCULAR HEMOGLOBIN 32.7 pg (27.0-33.0); MEAN CORPUSCULAR HGB CONC 32.9 g/dl (32.0-36.5); MEAN CORPUSCULAR VOLUME 99.3 fl (80.0-96.0); PLATELET COUNT, AUTOMATED 337 10^3/uL (150-450); RED BLOOD COUNT 3.06 10^6/uL (4.30-6.10); RED CELL DISTRIBUTION WIDTH 12.8 % (11.5-14.5); WHITE BLOOD COUNT 10.6 10^3/uL (4.0-10.0)
[2017-11-03 06:38] LABS: INR 2.81; PROTHROMBIN TIME 30.8 SECONDS (12.4-14.5)
[2017-11-03 06:40] LABS: ANION GAP 7 MEQ/L (8-16); BLOOD UREA NITROGEN 18 MG/DL (7-18); CALCIUM LEVEL 7.6 MG/DL (8.8-10.2); CARBON DIOXIDE LEVEL 25 MEQ/L (21-32); CHLORIDE LEVEL 111 MEQ/L (98-107); CREATININE FOR GFR 0.68 MG/DL (0.70-1.30); GLOMERULAR FILTRATION RATE > 60.0 (>35); GLUCOSE, FASTING 96 MG/DL (83-110); MAGNESIUM LEVEL 2.1 MG/DL (1.8-2.4); POTASSIUM SERUM 3.9 MEQ/L (3.5-5.1); SODIUM LEVEL 143 MEQ/L (136-145)
[2017-11-03] MEDS: FAMOTIDINE 20 MG TAB PO ×2 (07:58→20:50)
[2017-11-03] MEDS: MIRALAX *UNIT DOSE* 17GM PACKET PO (07:58)
[2017-11-03] MEDS: SENOKOT S TAB PO ×2 (07:58→20:44)
[2017-11-03] MEDS: NS 1,000 ML IV (07:58)
[2017-11-03] MEDS: NORCO, ANEXSIA 5/325MG TABLET (HYDROcodone/ACETAMINOPHEN) PO ×2 (07:59→14:57)
[2017-11-03] MEDS: WARFARIN SOD 2.5 MG TAB PO (11:28)
[2017-11-03] MEDS: PANTOPRAZOLE 40MG TAB (PROTONIX) PO (20:49)
[2017-11-04] MEDS: NS 1,000 ML IV ×2 (05:17→20:57)
[2017-11-04 06:22] LABS: HEMATOCRIT 32.1 % (42.0-52.0); HEMOGLOBIN 10.6 g/dl (14.0-18.0); MEAN CORPUSCULAR HEMOGLOBIN 32.7 pg (27.0-33.0); MEAN CORPUSCULAR VOLUME 99.1 fl (80.0-96.0); PLATELET COUNT, AUTOMATED 375 10^3/uL (150-450); RED BLOOD COUNT 3.24 10^6/uL (4.30-6.10); RED CELL DISTRIBUTION WIDTH 12.6 % (11.5-14.5); WHITE BLOOD COUNT 13.2 10^3/uL (4.0-10.0)
[2017-11-04 06:36] LABS: ANION GAP 8 MEQ/L (8-16); BLOOD UREA NITROGEN 14 MG/DL (7-18); CALCIUM LEVEL 7.9 MG/DL (8.8-10.2); CARBON DIOXIDE LEVEL 24 MEQ/L (21-32); CHLORIDE LEVEL 112 MEQ/L (98-107); CREATININE FOR GFR 0.67 MG/DL (0.70-1.30); GLOMERULAR FILTRATION RATE > 60.0 (>35); GLUCOSE, FASTING 104 MG/DL (83-110); MAGNESIUM LEVEL 2.2 MG/DL (1.8-2.4); POTASSIUM SERUM 3.8 MEQ/L (3.5-5.1); SODIUM LEVEL 144 MEQ/L (136-145)
[2017-11-04 06:41] LABS: INR 3.44; PROTHROMBIN TIME 36.4 SECONDS (12.4-14.5)
[2017-11-04] MEDS: MIRALAX *UNIT DOSE* 17GM PACKET PO (09:00)
[2017-11-04] MEDS: SENOKOT S TAB PO ×2 (09:00→20:58)
[2017-11-04] MEDS: FAMOTIDINE 20 MG TAB PO ×2 (09:36→20:59)
[2017-11-04] MEDS: ACETAMINOPHEN TAB 650MG DOSE (2X325MG) PO (12:56)
[2017-11-04] MEDS: ACYCLOVIR 5% OINT 15GM TOP ×2 (17:55→20:59)
[2017-11-04] MEDS: PANTOPRAZOLE 40MG TAB (PROTONIX) PO (21:00)
[2017-11-05] MEDS: ACYCLOVIR 5% OINT 15GM TOP ×2 (06:00→09:00)
[2017-11-05 07:09] LABS: HEMATOCRIT 30.7 % (42.0-52.0); HEMOGLOBIN 10.1 g/dl (14.0-18.0); MEAN CORPUSCULAR HEMOGLOBIN 32.7 pg (27.0-33.0); MEAN CORPUSCULAR HGB CONC 32.9 g/dl (32.0-36.5); MEAN CORPUSCULAR VOLUME 99.4 fl (80.0-96.0); PLATELET COUNT, AUTOMATED 348 10^3/uL (150-450); RED BLOOD COUNT 3.09 10^6/uL (4.30-6.10); WHITE BLOOD COUNT 11.4 10^3/uL (4.0-10.0)
[2017-11-05 07:25] LABS: INR 2.94
[2017-11-05 07:41] LABS: ANION GAP 9 MEQ/L (8-16); BLOOD UREA NITROGEN 14 MG/DL (7-18); CALCIUM LEVEL 7.8 MG/DL (8.8-10.2); CARBON DIOXIDE LEVEL 23 MEQ/L (21-32); CHLORIDE LEVEL 113 MEQ/L (98-107); CREATININE FOR GFR 0.59 MG/DL (0.70-1.30); GLOMERULAR FILTRATION RATE > 60.0 (>35); GLUCOSE, FASTING 97 MG/DL (83-110); MAGNESIUM LEVEL 2.1 MG/DL (1.8-2.4); POTASSIUM SERUM 3.8 MEQ/L (3.5-5.1); SODIUM LEVEL 145 MEQ/L (136-145)
[2017-11-05] MEDS: SENOKOT S TAB PO ×2 (09:31→21:00)
[2017-11-05] MEDS: FAMOTIDINE 20 MG TAB PO ×2 (09:31→21:00)
[2017-11-05] MEDS: MIRALAX *UNIT DOSE* 17GM PACKET PO (09:31)
[2017-11-05] MEDS: NS 1,000 ML IV (13:47)
[2017-11-05] MEDS: POTASSIUM CHLORIDE 10 MEQ SR TABLET PO (14:23)
[2017-11-05] MEDS: PANTOPRAZOLE 40MG TAB (PROTONIX) PO (21:00)
[2017-11-06 04:13] LABS: HEMATOCRIT 31.7 % (42.0-52.0); HEMOGLOBIN 10.5 g/dl (14.0-18.0); MEAN CORPUSCULAR HEMOGLOBIN 33.1 pg (27.0-33.0); MEAN CORPUSCULAR HGB CONC 33.1 g/dl (32.0-36.5); PLATELET COUNT, AUTOMATED 367 10^3/uL (150-450); RED BLOOD COUNT 3.17 10^6/uL (4.30-6.10); RED CELL DISTRIBUTION WIDTH 12.9 % (11.5-14.5); WHITE BLOOD COUNT 12.4 10^3/uL (4.0-10.0)
[2017-11-06 04:24] LABS: ANION GAP 10 MEQ/L (8-16); BLOOD UREA NITROGEN 14 MG/DL (7-18); CALCIUM LEVEL 7.7 MG/DL (8.8-10.2); CARBON DIOXIDE LEVEL 24 MEQ/L (21-32); CHLORIDE LEVEL 112 MEQ/L (98-107); CREATININE FOR GFR 0.58 MG/DL (0.70-1.30); GLOMERULAR FILTRATION RATE > 60.0 (>35); GLUCOSE, FASTING 109 MG/DL (83-110); MAGNESIUM LEVEL 2.1 MG/DL (1.8-2.4); POTASSIUM SERUM 3.7 MEQ/L (3.5-5.1); SODIUM LEVEL 146 MEQ/L (136-145)
[2017-11-06 04:25] LABS: INR 2.76; PROTHROMBIN TIME 30.4 SECONDS (12.4-14.5)
[2017-11-06] MEDS: NS 1,000 ML IV (06:34)
[2017-11-06] MEDS: SENOKOT S TAB PO ×2 (07:10→22:03)
[2017-11-06 08:24] LABS: C REACTIVE PROTEIN QUANTITATIV 6.95 MG/DL (0.00-0.30)
[2017-11-06] MEDS: D5W/0.45% SODIUM CHLORIDE 1,000 ML IV (09:31)
[2017-11-06] MEDS: ACETAMINOPHEN TAB 650MG DOSE (2X325MG) PO (09:32)
[2017-11-06] MEDS: FAMOTIDINE 20 MG TAB PO ×2 (09:32→22:03)
[2017-11-06 10:33] LABS: KETONE, URINE AUTO RFX 1+ mg/dL (NEGATIVE); LEUKOCYTE ESTERASE UR AUTO RFX NEGATIVE (NEGATIVE); MUCUS, URINE RFX SMALL (NEGATIVE); NITRITE, URINE AUTO RFX NEGATIVE (NEGATIVE); RBC, URINE AUTO RFX 1 /HPF (0-3); SPECIFIC GRAVITY UR AUTO RFX 1.019 (1.002-1.035); SQUAM EPITHELIAL CELL UR AURFX 0 /HPF (0-6); WBC, URINE AUTO RFX 0 /HPF (0-3)
[2017-11-06] MEDS: CEFTRIAXONE SOD 1 GM in APPROPRIATE DILUENT 1 EA IV (10:51)
[2017-11-06] MEDS: FLUCONAZOLE 100 MG TAB PO (14:30)
[2017-11-06] MEDS: PANTOPRAZOLE 40MG TAB (PROTONIX) PO (22:03)
[2017-11-07] MEDS: D5W/0.45% SODIUM CHLORIDE 1,000 ML IV ×2 (01:06→21:42)
[2017-11-07] MEDS: NORCO, ANEXSIA 5/325MG TABLET (HYDROcodone/ACETAMINOPHEN) PO (04:15)
[2017-11-07] MEDS: D5W MINI IV ×2 (05:32→13:00)
[2017-11-07] MEDS: ACYCLOVIR IV ×2 (05:32→13:00)
[2017-11-07 06:35] LABS: HEMATOCRIT 30.1 % (42.0-52.0); HEMOGLOBIN 9.8 g/dl (14.0-18.0); MEAN CORPUSCULAR HEMOGLOBIN 32.2 pg (27.0-33.0); MEAN CORPUSCULAR HGB CONC 32.6 g/dl (32.0-36.5); PLATELET COUNT, AUTOMATED 300 10^3/uL (150-450); RED BLOOD COUNT 3.04 10^6/uL (4.30-6.10); RED CELL DISTRIBUTION WIDTH 12.9 % (11.5-14.5); WHITE BLOOD COUNT 10.1 10^3/uL (4.0-10.0)
[2017-11-07 06:51] LABS: INR 2.54; PROTHROMBIN TIME 28.4 SECONDS (12.4-14.5)
[2017-11-07 07:00] LABS: ANION GAP 5 MEQ/L (8-16); BLOOD UREA NITROGEN 16 MG/DL (7-18); CALCIUM LEVEL 7.7 MG/DL (8.8-10.2); CARBON DIOXIDE LEVEL 28 MEQ/L (21-32); CHLORIDE LEVEL 111 MEQ/L (98-107); CREATININE FOR GFR 0.61 MG/DL (0.70-1.30); GLOMERULAR FILTRATION RATE > 60.0 (>35); GLUCOSE, FASTING 126 MG/DL (83-110); MAGNESIUM LEVEL 1.9 MG/DL (1.8-2.4); POTASSIUM SERUM 3.5 MEQ/L (3.5-5.1); SODIUM LEVEL 144 MEQ/L (136-145)
[2017-11-07] MEDS: FLUCONAZOLE 100 MG TAB PO (09:52)
[2017-11-07] MEDS: FAMOTIDINE 20 MG TAB PO ×2 (09:52→21:43)
[2017-11-07] MEDS: SENOKOT S TAB PO ×2 (09:52→21:43)
[2017-11-07] MEDS: CEFTRIAXONE SOD 1 GM in APPROPRIATE DILUENT 1 EA IV (09:53)
[2017-11-07] MEDS: PANTOPRAZOLE 40MG TAB (PROTONIX) PO (21:43)
[2017-11-08 07:50] LABS: HEMATOCRIT 30.3 % (42.0-52.0); HEMOGLOBIN 10.1 g/dl (14.0-18.0); MEAN CORPUSCULAR HEMOGLOBIN 32.7 pg (27.0-33.0); MEAN CORPUSCULAR HGB CONC 33.3 g/dl (32.0-36.5); MEAN CORPUSCULAR VOLUME 98.1 fl (80.0-96.0); PLATELET COUNT, AUTOMATED 350 10^3/uL (150-450); RED BLOOD COUNT 3.09 10^6/uL (4.30-6.10); RED CELL DISTRIBUTION WIDTH 12.9 % (11.5-14.5); WHITE BLOOD COUNT 8.7 10^3/uL (4.0-10.0)
[2017-11-08 07:59] LABS: INR 2.35; PROTHROMBIN TIME 26.6 SECONDS (12.4-14.5)
[2017-11-08 08:14] LABS: ANION GAP 6 MEQ/L (8-16); BLOOD UREA NITROGEN 9 MG/DL (7-18); C REACTIVE PROTEIN QUANTITATIV 4.91 MG/DL (0.00-0.30); CALCIUM LEVEL 7.8 MG/DL (8.8-10.2); CARBON DIOXIDE LEVEL 28 MEQ/L (21-32); CHLORIDE LEVEL 110 MEQ/L (98-107); CREATININE FOR GFR 0.59 MG/DL (0.70-1.30); GLOMERULAR FILTRATION RATE > 60.0 (>35); GLUCOSE, FASTING 115 MG/DL (83-110); POTASSIUM SERUM 3.2 MEQ/L (3.5-5.1); SODIUM LEVEL 144 MEQ/L (136-145)
[2017-11-08] MEDS: FAMOTIDINE 20 MG TAB PO ×2 (08:57→21:23)
[2017-11-08] MEDS: FLUCONAZOLE 100 MG TAB PO (08:57)
[2017-11-08] MEDS: SENOKOT S TAB PO ×2 (08:57→21:00)
[2017-11-08] MEDS: NORCO, ANEXSIA 5/325MG TABLET (HYDROcodone/ACETAMINOPHEN) PO ×2 (08:57→15:48)
[2017-11-08] MEDS: CEFTRIAXONE SOD 1 GM in APPROPRIATE DILUENT 1 EA IV (09:02)
[2017-11-08] MEDS: D5W/0.45% SODIUM CHLORIDE 1,000 ML IV (12:36)
[2017-11-08] MEDS: POTASSIUM CHLORIDE 10 MEQ SR TABLET PO (15:46)
[2017-11-08] MEDS: PANTOPRAZOLE 40MG TAB (PROTONIX) PO (21:23)
[2017-11-09] MEDS: D5W/0.45% SODIUM CHLORIDE 1,000 ML IV ×2 (06:06→19:35)
[2017-11-09 06:33] LABS: C REACTIVE PROTEIN QUANTITATIV 3.93 MG/DL (0.00-0.30)
[2017-11-09] MEDS: SENOKOT S TAB PO ×2 (10:27→20:05)
[2017-11-09] MEDS: FAMOTIDINE 20 MG TAB PO ×2 (10:27→20:05)
[2017-11-09] MEDS: CEFTRIAXONE SOD 1 GM in APPROPRIATE DILUENT 1 EA IV (10:28)
[2017-11-09] MEDS: FLUCONAZOLE 100 MG TAB PO (10:28)
[2017-11-09] MEDS: NORCO, ANEXSIA 5/325MG TABLET (HYDROcodone/ACETAMINOPHEN) PO ×2 (10:29→20:05)
[2017-11-09 10:53] LABS: HEMATOCRIT 32.9 % (42.0-52.0); HEMOGLOBIN 10.8 g/dl (14.0-18.0); MEAN CORPUSCULAR HEMOGLOBIN 32.4 pg (27.0-33.0); MEAN CORPUSCULAR HGB CONC 32.8 g/dl (32.0-36.5); MEAN CORPUSCULAR VOLUME 98.8 fl (80.0-96.0); PLATELET COUNT, AUTOMATED 367 10^3/uL (150-450); RED BLOOD COUNT 3.33 10^6/uL (4.30-6.10); RED CELL DISTRIBUTION WIDTH 13.1 % (11.5-14.5)
[2017-11-09 11:17] LABS: ANION GAP 6 MEQ/L (8-16); BLOOD UREA NITROGEN 9 MG/DL (7-18); CALCIUM LEVEL 7.7 MG/DL (8.8-10.2); CARBON DIOXIDE LEVEL 29 MEQ/L (21-32); CHLORIDE LEVEL 110 MEQ/L (98-107); CREATININE FOR GFR 0.75 MG/DL (0.70-1.30); GLOMERULAR FILTRATION RATE > 60.0 (>35); GLUCOSE, FASTING 129 MG/DL (83-110); MAGNESIUM LEVEL 1.9 MG/DL (1.8-2.4); POTASSIUM SERUM 3.4 MEQ/L (3.5-5.1); SODIUM LEVEL 145 MEQ/L (136-145)
[2017-11-09] MEDS: POTASSIUM CHLORIDE 10 MEQ SR TABLET PO (14:28)
[2017-11-09] MEDS: PANTOPRAZOLE 40MG TAB (PROTONIX) PO (20:06)
[2017-11-10 06:17] LABS: HEMOGLOBIN 11.2 g/dl (14.0-18.0); MEAN CORPUSCULAR HEMOGLOBIN 32.6 pg (27.0-33.0); MEAN CORPUSCULAR HGB CONC 32.9 g/dl (32.0-36.5); MEAN CORPUSCULAR VOLUME 98.8 fl (80.0-96.0); PLATELET COUNT, AUTOMATED 339 10^3/uL (150-450); RED BLOOD COUNT 3.44 10^6/uL (4.30-6.10); RED CELL DISTRIBUTION WIDTH 13.1 % (11.5-14.5); WHITE BLOOD COUNT 9.4 10^3/uL (4.0-10.0)
[2017-11-10 06:42] LABS: ANION GAP 6 MEQ/L (8-16); BLOOD UREA NITROGEN 8 MG/DL (7-18); CALCIUM LEVEL 8.1 MG/DL (8.8-10.2); CARBON DIOXIDE LEVEL 27 MEQ/L (21-32); CHLORIDE LEVEL 111 MEQ/L (98-107); CREATININE FOR GFR 0.68 MG/DL (0.70-1.30); GLOMERULAR FILTRATION RATE > 60.0 (>35); GLUCOSE, FASTING 105 MG/DL (83-110); POTASSIUM SERUM 3.4 MEQ/L (3.5-5.1); SODIUM LEVEL 144 MEQ/L (136-145)
[2017-11-10] MEDS: POTASSIUM CHLORIDE 10 MEQ SR TABLET PO ×2 (09:39→17:47)
[2017-11-10] MEDS: CEFDINIR 300 MG CAP (OMNICEF) PO ×2 (09:39→20:33)
[2017-11-10] MEDS: FLUCONAZOLE 100 MG TAB PO (09:39)
[2017-11-10] MEDS: FAMOTIDINE 20 MG TAB PO ×2 (09:40→20:33)
[2017-11-10] MEDS: SENOKOT S TAB PO ×2 (09:40→20:33)
[2017-11-10] MEDS: D5W/0.45% SODIUM CHLORIDE 1,000 ML IV (16:05)
[2017-11-10] MEDS: RIVAROXABAN 10 MG TAB (XARELTO) PO (17:47)
[2017-11-10] MEDS: PANTOPRAZOLE 40MG TAB (PROTONIX) PO (20:33)
[2017-11-10] MEDS: HALOPERIDOL 2 MG TAB PO (20:33)
[2017-11-10] MEDS: NORCO, ANEXSIA 5/325MG TABLET (HYDROcodone/ACETAMINOPHEN) PO ×2 (20:34→21:04)
[2017-11-11 06:15] LABS: HEMATOCRIT 29.4 % (42.0-52.0); HEMOGLOBIN 9.8 g/dl (14.0-18.0); MEAN CORPUSCULAR HEMOGLOBIN 33.1 pg (27.0-33.0); MEAN CORPUSCULAR HGB CONC 33.3 g/dl (32.0-36.5); MEAN CORPUSCULAR VOLUME 99.3 fl (80.0-96.0); PLATELET COUNT, AUTOMATED 305 10^3/uL (150-450); RED BLOOD COUNT 2.96 10^6/uL (4.30-6.10); RED CELL DISTRIBUTION WIDTH 13.2 % (11.5-14.5); WHITE BLOOD COUNT 10.8 10^3/uL (4.0-10.0)
[2017-11-11 06:33] LABS: ANION GAP 8 MEQ/L (8-16); BLOOD UREA NITROGEN 10 MG/DL (7-18); C REACTIVE PROTEIN QUANTITATIV 3.67 MG/DL (0.00-0.30); CARBON DIOXIDE LEVEL 24 MEQ/L (21-32); CHLORIDE LEVEL 114 MEQ/L (98-107); CREATININE FOR GFR 0.74 MG/DL (0.70-1.30); GLOMERULAR FILTRATION RATE > 60.0 (>35); GLUCOSE, FASTING 136 MG/DL (83-110); POTASSIUM SERUM 3.5 MEQ/L (3.5-5.1); SODIUM LEVEL 146 MEQ/L (136-145)
[2017-11-11] MEDS: CEFDINIR 300 MG CAP (OMNICEF) PO ×2 (08:51→21:48)
[2017-11-11] MEDS: SENOKOT S TAB PO ×2 (08:51→21:48)
[2017-11-11] MEDS: FAMOTIDINE 20 MG TAB PO ×2 (08:51→21:48)
[2017-11-11] MEDS: FLUCONAZOLE 100 MG TAB PO (08:51)
[2017-11-11] MEDS: POTASSIUM CHLORIDE 10 MEQ SR TABLET PO (08:52)
[2017-11-11] MEDS: D5W/0.45% SODIUM CHLORIDE 1,000 ML IV ×2 (16:09→21:35)
[2017-11-11] MEDS: RIVAROXABAN 10 MG TAB (XARELTO) PO (17:36)
[2017-11-11] MEDS: NORCO, ANEXSIA 5/325MG TABLET (HYDROcodone/ACETAMINOPHEN) PO (17:37)
[2017-11-11] MEDS: HYDROCORTISONE 0.5% CREAM 30 GM TOP (21:34)
[2017-11-11] MEDS: PANTOPRAZOLE 40MG TAB (PROTONIX) PO (21:48)
[2017-11-12] MEDS: NORCO, ANEXSIA 5/325MG TABLET (HYDROcodone/ACETAMINOPHEN) PO ×3 (00:07→23:37)
[2017-11-12 06:17] LABS: HEMATOCRIT 29.3 % (42.0-52.0); HEMOGLOBIN 9.6 g/dl (14.0-18.0); MEAN CORPUSCULAR HEMOGLOBIN 32.4 pg (27.0-33.0); MEAN CORPUSCULAR HGB CONC 32.8 g/dl (32.0-36.5); PLATELET COUNT, AUTOMATED 289 10^3/uL (150-450); RED BLOOD COUNT 2.96 10^6/uL (4.30-6.10); RED CELL DISTRIBUTION WIDTH 13.2 % (11.5-14.5); WHITE BLOOD COUNT 9.4 10^3/uL (4.0-10.0)
[2017-11-12 06:32] LABS: ANION GAP 6 MEQ/L (8-16); BLOOD UREA NITROGEN 11 MG/DL (7-18); C REACTIVE PROTEIN QUANTITATIV 4.19 MG/DL (0.00-0.30); CALCIUM LEVEL 7.8 MG/DL (8.8-10.2); CARBON DIOXIDE LEVEL 27 MEQ/L (21-32); CHLORIDE LEVEL 113 MEQ/L (98-107); CREATININE FOR GFR 0.76 MG/DL (0.70-1.30); GLOMERULAR FILTRATION RATE > 60.0 (>35); GLUCOSE, FASTING 101 MG/DL (83-110); POTASSIUM SERUM 3.7 MEQ/L (3.5-5.1); SODIUM LEVEL 146 MEQ/L (136-145)
[2017-11-12] MEDS: SENOKOT S TAB PO ×2 (09:02→20:46)
[2017-11-12] MEDS: CEFDINIR 300 MG CAP (OMNICEF) PO ×2 (09:02→20:45)
[2017-11-12] MEDS: FAMOTIDINE 20 MG TAB PO ×2 (09:03→20:46)
[2017-11-12] MEDS: FLUCONAZOLE 100 MG TAB PO (09:03)
[2017-11-12] MEDS: POTASSIUM CHLORIDE 10 MEQ SR TABLET PO (09:03)
[2017-11-12] MEDS: HYDROCORTISONE 0.5% CREAM 30 GM TOP ×2 (09:07→20:47)
[2017-11-12] MEDS: RIVAROXABAN 10 MG TAB (XARELTO) PO (17:31)
[2017-11-12] MEDS: PANTOPRAZOLE 40MG TAB (PROTONIX) PO (20:45)
[2017-11-13 06:19] LABS: HEMATOCRIT 28.4 % (42.0-52.0); HEMOGLOBIN 9.4 g/dl (14.0-18.0); MEAN CORPUSCULAR HEMOGLOBIN 33.1 pg (27.0-33.0); MEAN CORPUSCULAR HGB CONC 33.1 g/dl (32.0-36.5); PLATELET COUNT, AUTOMATED 296 10^3/uL (150-450); RED BLOOD COUNT 2.84 10^6/uL (4.30-6.10); RED CELL DISTRIBUTION WIDTH 13.4 % (11.5-14.5); WHITE BLOOD COUNT 10.6 10^3/uL (4.0-10.0)
[2017-11-13 06:43] LABS: ANION GAP 7 MEQ/L (8-16); BLOOD UREA NITROGEN 16 MG/DL (7-18); C REACTIVE PROTEIN QUANTITATIV 3.98 MG/DL (0.00-0.30); CALCIUM LEVEL 7.7 MG/DL (8.8-10.2); CARBON DIOXIDE LEVEL 26 MEQ/L (21-32); CHLORIDE LEVEL 113 MEQ/L (98-107); CREATININE FOR GFR 0.81 MG/DL (0.70-1.30); GLOMERULAR FILTRATION RATE > 60.0 (>35); GLUCOSE, FASTING 97 MG/DL (83-110); POTASSIUM SERUM 3.6 MEQ/L (3.5-5.1); SODIUM LEVEL 146 MEQ/L (136-145)
[2017-11-13] MEDS: POTASSIUM CHLORIDE 10 MEQ SR TABLET PO (09:43)
[2017-11-13] MEDS: CEFDINIR 300 MG CAP (OMNICEF) PO ×2 (09:43→20:34)
[2017-11-13] MEDS: SENOKOT S TAB PO ×2 (09:43→20:35)
[2017-11-13] MEDS: FAMOTIDINE 20 MG TAB PO ×2 (09:44→20:34)
[2017-11-13] MEDS: HYDROCORTISONE 0.5% CREAM 30 GM TOP ×2 (09:44→20:35)
[2017-11-13] MEDS: FLUCONAZOLE 100 MG TAB PO (11:11)
[2017-11-13] MEDS: RIVAROXABAN 10 MG TAB (XARELTO) PO (17:50)
[2017-11-13] MEDS: NORCO, ANEXSIA 5/325MG TABLET (HYDROcodone/ACETAMINOPHEN) PO (17:50)
[2017-11-13] MEDS: PANTOPRAZOLE 40MG TAB (PROTONIX) PO (20:35)
[2017-11-14 05:41] LABS: HEMATOCRIT 30.6 % (42.0-52.0); HEMOGLOBIN 10.1 g/dl (14.0-18.0); MEAN CORPUSCULAR HEMOGLOBIN 32.9 pg (27.0-33.0); MEAN CORPUSCULAR VOLUME 99.7 fl (80.0-96.0); PLATELET COUNT, AUTOMATED 311 10^3/uL (150-450); RED BLOOD COUNT 3.07 10^6/uL (4.30-6.10); RED CELL DISTRIBUTION WIDTH 13.3 % (11.5-14.5); WHITE BLOOD COUNT 11.1 10^3/uL (4.0-10.0)
[2017-11-14 06:08] LABS: ANION GAP 7 MEQ/L (8-16); BLOOD UREA NITROGEN 21 MG/DL (7-18); CALCIUM LEVEL 8.2 MG/DL (8.8-10.2); CARBON DIOXIDE LEVEL 26 MEQ/L (21-32); CHLORIDE LEVEL 111 MEQ/L (98-107); CREATININE FOR GFR 0.86 MG/DL (0.70-1.30); GLOMERULAR FILTRATION RATE > 60.0 (>35); GLUCOSE, FASTING 97 MG/DL (83-110); POTASSIUM SERUM 3.7 MEQ/L (3.5-5.1); SODIUM LEVEL 144 MEQ/L (136-145)
[2017-11-14] MEDS: HYDROCORTISONE 0.5% CREAM 30 GM TOP ×2 (09:00→20:27)
[2017-11-14] MEDS: POTASSIUM CHLORIDE 10 MEQ SR TABLET PO (09:59)
[2017-11-14] MEDS: FLUCONAZOLE 100 MG TAB PO (09:59)
[2017-11-14] MEDS: CEFDINIR 300 MG CAP (OMNICEF) PO ×2 (09:59→20:27)
[2017-11-14] MEDS: SENOKOT S TAB PO ×2 (09:59→20:27)
[2017-11-14] MEDS: FAMOTIDINE 20 MG TAB PO ×2 (09:59→20:27)
[2017-11-14] MEDS: BISACODYL 10 MG SUPP PR (16:22)
[2017-11-14] MEDS: RIVAROXABAN 10 MG TAB (XARELTO) PO (18:03)
[2017-11-14] MEDS: PANTOPRAZOLE 40MG TAB (PROTONIX) PO (20:27)
[2017-11-15 06:20] LABS: HEMATOCRIT 27.9 % (42.0-52.0); MEAN CORPUSCULAR HEMOGLOBIN 31.9 pg (27.0-33.0); MEAN CORPUSCULAR HGB CONC 32.3 g/dl (32.0-36.5); MEAN CORPUSCULAR VOLUME 98.9 fl (80.0-96.0); PLATELET COUNT, AUTOMATED 269 10^3/uL (150-450); RED BLOOD COUNT 2.82 10^6/uL (4.30-6.10); RED CELL DISTRIBUTION WIDTH 13.2 % (11.5-14.5); WHITE BLOOD COUNT 12.6 10^3/uL (4.0-10.0)
[2017-11-15 06:33] LABS: ANION GAP 8 MEQ/L (8-16); BLOOD UREA NITROGEN 26 MG/DL (7-18); C REACTIVE PROTEIN QUANTITATIV 7.33 MG/DL (0.00-0.30); CALCIUM LEVEL 7.8 MG/DL (8.8-10.2); CARBON DIOXIDE LEVEL 25 MEQ/L (21-32); CHLORIDE LEVEL 113 MEQ/L (98-107); CREATININE FOR GFR 0.79 MG/DL (0.70-1.30); GLOMERULAR FILTRATION RATE > 60.0 (>35); GLUCOSE, FASTING 90 MG/DL (83-110); POTASSIUM SERUM 3.8 MEQ/L (3.5-5.1); SODIUM LEVEL 146 MEQ/L (136-145)
[2017-11-15] MEDS: BISACODYL 10 MG SUPP PR (10:09)
[2017-11-15] MEDS: POTASSIUM CHLORIDE 10 MEQ SR TABLET PO (10:11)
[2017-11-15] MEDS: FLUCONAZOLE 100 MG TAB PO (10:17)
[2017-11-15] MEDS: CEFDINIR 300 MG CAP (OMNICEF) PO (10:17)
[2017-11-15] MEDS: SENOKOT S TAB PO ×2 (10:17→21:00)
[2017-11-15] MEDS: MIRALAX *UNIT DOSE* 17GM PACKET PO (10:17)
[2017-11-15] MEDS: FAMOTIDINE 20 MG TAB PO (10:17)
[2017-11-15] MEDS: HYDROCORTISONE 0.5% CREAM 30 GM TOP (10:18)
[2017-11-15] MEDS: D5W/0.45% SODIUM CHLORIDE 1,000 ML IV (15:54)
[2017-11-15] MEDS: RIVAROXABAN 10 MG TAB (XARELTO) PO (18:05)
[2017-11-16] MEDS: NORCO, ANEXSIA 5/325MG TABLET (HYDROcodone/ACETAMINOPHEN) PO ×2 (00:09→20:05)
[2017-11-16] MEDS: CEFDINIR 300 MG CAP (OMNICEF) PO ×2 (00:12→10:00)
[2017-11-16] MEDS: FAMOTIDINE 20 MG TAB PO ×4 (00:13→21:00)
[2017-11-16] MEDS: PANTOPRAZOLE 40MG TAB (PROTONIX) PO ×3 (00:14→21:00)
[2017-11-16] MEDS: HYDROCORTISONE 0.5% CREAM 30 GM TOP ×3 (00:16→20:04)
[2017-11-16 08:30] LABS: HEMATOCRIT 27.6 % (42.0-52.0); MEAN CORPUSCULAR HGB CONC 32.6 g/dl (32.0-36.5); MEAN CORPUSCULAR VOLUME 101.1 fl (80.0-96.0); PLATELET COUNT, AUTOMATED 228 10^3/uL (150-450); RED BLOOD COUNT 2.73 10^6/uL (4.30-6.10); RED CELL DISTRIBUTION WIDTH 13.4 % (11.5-14.5); WHITE BLOOD COUNT 12.1 10^3/uL (4.0-10.0)
[2017-11-16 08:52] LABS: ANION GAP 6 MEQ/L (8-16); BLOOD UREA NITROGEN 36 MG/DL (7-18); CALCIUM LEVEL 7.5 MG/DL (8.8-10.2); CARBON DIOXIDE LEVEL 28 MEQ/L (21-32); CHLORIDE LEVEL 114 MEQ/L (98-107); CREATININE FOR GFR 1.06 MG/DL (0.70-1.30); GLOMERULAR FILTRATION RATE > 60.0 (>35); GLUCOSE, FASTING 118 MG/DL (83-110); POTASSIUM SERUM 3.7 MEQ/L (3.5-5.1); SODIUM LEVEL 148 MEQ/L (136-145)
[2017-11-16] MEDS: POTASSIUM CHLORIDE 10 MEQ SR TABLET PO (09:58)
[2017-11-16] MEDS: FLUCONAZOLE 100 MG TAB PO (09:59)
[2017-11-16] MEDS: SENOKOT S TAB PO ×3 (09:59→21:00)
[2017-11-16] MEDS: D5W 1,000 ML IV (12:29)
[2017-11-16] MEDS: RIVAROXABAN 10 MG TAB (XARELTO) PO (17:27)
[2017-11-16] MEDS: HALOPERIDOL 2 MG TAB PO (20:14)
[2017-11-16] MEDS: LORazepam 2 MG/ML VIAL (J2060) IV (20:40)
[2017-11-17] MEDS: FLUCONAZOLE 100 MG TAB PO (10:54)
[2017-11-17] MEDS: POTASSIUM CHLORIDE 10 MEQ SR TABLET PO (10:55)
[2017-11-17] MEDS: SENOKOT S TAB PO ×2 (10:55→22:13)
[2017-11-17] MEDS: FAMOTIDINE 20 MG TAB PO ×2 (10:55→22:13)
[2017-11-17] MEDS: HYDROCORTISONE 0.5% CREAM 30 GM TOP ×2 (10:57→22:20)
[2017-11-17] MEDS: RIVAROXABAN 10 MG TAB (XARELTO) PO (17:33)
[2017-11-17] MEDS: PANTOPRAZOLE 40MG TAB (PROTONIX) PO (22:13)
[2017-11-17] MEDS: NORCO, ANEXSIA 5/325MG TABLET (HYDROcodone/ACETAMINOPHEN) PO (22:20)
[2017-11-18] MEDS: FLUCONAZOLE 100 MG TAB PO (10:10)
[2017-11-18] MEDS: POTASSIUM CHLORIDE 10 MEQ SR TABLET PO (10:10)
[2017-11-18] MEDS: FAMOTIDINE 20 MG TAB PO (10:10)
[2017-11-18] MEDS: SENOKOT S TAB PO (10:10)
[2017-11-18] MEDS: ACETAMINOPHEN TAB 650MG DOSE (2X325MG) PO (10:10)
[2017-11-18] MEDS: HYDROCORTISONE 0.5% CREAM 30 GM TOP (10:11)
[2017-11-18 10:14] LABS: ANION GAP 6 MEQ/L (8-16); BLOOD UREA NITROGEN 39 MG/DL (7-18); CALCIUM LEVEL 7.4 MG/DL (8.8-10.2); CARBON DIOXIDE LEVEL 27 MEQ/L (21-32); CHLORIDE LEVEL 111 MEQ/L (98-107); CREATININE FOR GFR 1.46 MG/DL (0.70-1.30); GLOMERULAR FILTRATION RATE 49.2 (>35); GLUCOSE, FASTING 100 MG/DL (83-110); SODIUM LEVEL 144 MEQ/L (136-145)
[2017-11-18] MEDS: D5W/0.45% SODIUM CHLORIDE 1,000 ML IV (11:05)
[2017-11-18] MEDS ORDERED: ONDANSETRON 4MG/2ML VIAL (J2405) IV (14:30)
[2017-11-18] MEDS ORDERED: ATROPINE SULFATE 1% OP SOLN 2 ML BTL SL (14:30)
[2017-11-18] MEDS: MORPHINE 2 MG/ML 1ML SYRINGE IV (14:30)
[2017-11-18] MEDS ORDERED: LORazepam 2 MG/ML VIAL (J2060) IV (14:30)
[2017-11-19] MEDS: MORPHINE 2 MG/ML 1ML SYRINGE IV ×4 (09:47→23:57)
[2017-11-20] MEDS: MORPHINE 2 MG/ML 1ML SYRINGE IV ×3 (10:54→17:33)
[2017-11-21] MEDS: SCOPOLAMINE 1MG TRANSDERMAL PATCH TOP (13:21)
[2017-11-21] MEDS: MORPHINE 10MG/0.5ML ORAL CONCENTRATE SOLUTION U/D SL ×2 (13:22→18:23)
[2017-11-22] MEDS: ACETAMINOPHEN 650 MG SUPP PR (00:37)
[2017-11-22] MEDS: MORPHINE 2 MG/ML 1ML SYRINGE IV ×3 (06:55→19:56)
[2017-11-23] MEDS: MORPHINE 10MG/0.5ML ORAL CONCENTRATE SOLUTION U/D SL ×2 (05:05→18:56)
[2017-11-24] MEDS: MORPHINE 10MG/0.5ML ORAL CONCENTRATE SOLUTION U/D SL (13:30)
[2017-11-24] MEDS: MORPHINE 2 MG/ML 1ML SYRINGE IV (19:23)
[2017-11-25] MEDS: MORPHINE 2 MG/ML 1ML SYRINGE IV (09:12)
== END 2017-11-25 10:30 | disposition expired | DRG 312 ==
LOC: M MSPAV 11-06 15:10 → M PCU 21:43
DX: I95.2 Hypotension due to drugs (principal); E46 Unspecified protein-calorie malnutrition; E87.0 Hyperosmolality and hypernatremia; Z51.5 Encounter for palliative care; Z66 Do not resuscitate; K44.9 Diaphragmatic hernia without obstruction or gangrene; K21.9 Gastro-esophageal reflux disease without esophagitis; R55 Syncope and collapse; S72.041D Displaced fracture of base of neck of right femur, subsequent encounter for closed fracture with routine healing; W18.09XD Striking against other object with subsequent fall, subsequent encounter; Y92.009 Unspecified place in unspecified non-institutional (private) residence as the place of occurrence of the external cause; F03.90 Unspecified dementia, unspecified severity, without behavioral disturbance, psychotic disturbance, mood disturbance, and anxiety; R21 Rash and other nonspecific skin eruption; D72.829 Elevated white blood cell count, unspecified; B97.4 Respiratory syncytial virus as the cause of diseases classified elsewhere; Z95.0 Presence of cardiac pacemaker; Z79.01 Long term (current) use of anticoagulants; Z79.899 Other long term (current) drug therapy; Z87.891 Personal history of nicotine dependence; T43.025A Adverse effect of tetracyclic antidepressants, initial encounter; T43.215A Adverse effect of selective serotonin and norepinephrine reuptake inhibitors, initial encounter; T40.4X5A Adverse effect of other synthetic narcotics, initial encounter